=== PATIENT | male | born 1940 | race Caucasian/White ===

== ENCOUNTER 2017-04-21 15:11 | Inpatient (IN) ==
[2017-04-21] MEDS ORDERED: 0.9 % Sodium Chloride 1,000 ML IVC ONE ×2 (15:20→15:30)
[2017-04-21] MEDS ORDERED: Pantoprazole 80 MG in 0.9 % Sodium Chloride 50 ML IVPB ONE (15:20)
[2017-04-21] MEDS ORDERED: Ondansetron 4 MG/2 ML VIAL IVP ONE (15:20)
[2017-04-21 15:31] LABS: Basophils # 0.1 K/mcL (0.0-0.2); Basophils % 0.7 %; Eosinophils # 0.2 K/mcL (0.0-0.6); Eosinophils % 1.3 %; Hematocrit 35.1 % (37.5-50.1); Hemoglobin 11.5 g/dL (12.9-16.9); Immature Granulocytes % 2.5 % (0-4); Lymphocytes # 2.2 K/mcL (0.6-4.6); Lymphocytes % 19.7 %; Mean Corpuscular HGB Conc 32.8 g/dL (31.6-35.5); Mean Corpuscular Hemoglobin 28.6 pg (28.0-33.3); Mean Corpuscular Volume 87.3 fL (83.0-100.0); Mean Platelet Volume 10.3 fL (9.4-12.4); Monocytes # 1.2 K/mcL (0.0-1.3); Monocytes % 10.7 %; Neutrophils # 7.4 K/mcL (1.6-8.9); Nucleated Red Blood Cells 0.2 /100 WBC (0); Platelet Count 203 K/mcL (140-400); Red Blood Count 4.02 M/mcL (4.19-5.50); Red Cell Distribution Width 14.4 % (11.5-14.5); Segmented Neutrophils % 65.1 %
[2017-04-21 15:36] LABS: INR 1.1; Prothrombin Time 11.5 Seconds (9.4-12.1)
[2017-04-21 15:39] LABS: Activated Partial Thrombo Time 22.4 Seconds (26.0-36.0)
[2017-04-21 15:43] LABS: Calcium 9.3 mg/dL (8.6-10.8); Potassium 4.3 mEq/L (3.5-4.5)
--- NOTE | 2017-04-21 15:44 | Emergency Department Note ---
Disposition Clinical Impression: Lactic acidemia, Prerenal azotemia, Acute kidney injury GI bleed Qualifiers: GI bleed type/associated pathology: melena Qualified Code(s): K92.1 - Melena Disposition: Admitted As Inpatient Condition: Serious Time of Disposition: 19:36 GI Bleed HPI - General Chief complaint: ED GI Bleed Stated complaint: Black tar stool, weakness Time Seen by Provider: 04/21/17 15:20 Source: patient Limitations: no limitations Nursing Notes Reviewed: Yes Vital Signs Reviewed: Yes - History of Present Illness HPI Narrative: 36-year-old male presents tachycardic and his blood pressure 105/81 complains of recent GI bleed and weakness 1 day. Patient has history of hypertension diabetes. No abdominal surgeries. No cardiac issues. Patient states he went to the bathroom yesterday and found black tarry stool. Patient's symptoms of weakness and lightheadedness began yesterday evening. Patient brought in for evaluation. Patient denies tobacco use, illicit drug use, alcohol use. Patient not on any anticoagulants. - Related Data Home Medications Medication Instructions Recorded Confirmed Alendronate Sodium [Alendronate 70 mg PO QWEEK 04/21/17 04/21/17 Sodium] Glimepiride [Amaryl] 2 mg PO DAILY 04/21/17 04/21/17 Levothyroxine Sodium 50 mcg PO DAILY 04/21/17 04/21/17 [Levothyroxine Sodium] Lisinopril [Lisinopril] 2.5 mg PO DAILY 04/21/17 04/21/17 predniSONE [PredniSONE] 3 mg PO QAM 04/21/17 04/21/17 predniSONE [PredniSONE] 5 mg PO QAM 04/21/17 04/21/17 Allergies Allergy/AdvReac Type Severity Reaction Status Date / Time No Known Allergies Allergy Verified 04/21/17 15:21 All systems ED: reviewed and negative except as stated. Review of Systems: As Per HPI Constitutional: Reports: weakness. Denies: fever, chills Eyes: Denies: vision change ENT ED: Denies: congestion Cardiovascular: Denies: chest pain, palpitations Respiratory: Denies: cough, dyspnea Gastrointestinal: Denies: abdominal pain, nausea, vomiting Genitourinary: Denies: urgency, dysuria Musculoskeletal: Denies: back pain, neck pain Integumentary: Denies: rash Neurological: Reports: weakness (Generalized). Denies: headache Endocrine: Reports: fatigue Past Medical History - Past Medical History Attestation: Yes The following information was validated with the patient. Source: patient Medical history: Reports: diabetes, hypertension, thyroid disease Psychiatric history: Reports: no psych history - Social History Smoking Status: Never smoker Smokeless Tobacco Status: No Alcohol use: Reports: none Drug use: Reports: none Physical Exam - General Limitations: no limitations General appearance: alert, in no apparent distress - Head Head exam: atraumatic, normocephalic, normal inspection - Eye Eye exam: Present: normal appearance, PERRL, EOMI - ENT ENT exam: normal exam, normal oropharynx, mucous membranes moist - Neck Neck exam: Present: normal inspection, full ROM, trachea midline - Chest Chest inspection: Present: normal inspection, symmetric chest wall rise - Respiratory Respiratory exam: Present: normal lung sounds bilaterally - Cardiovascular Cardiovascular exam: Present: normal rhythm, tachycardia, normal heart sounds - Abdominal Exam Abdominal exam: Present: soft, Non-Tender. Absent: tenderness, distention, guarding, rebound, rigidity - Rectal Exam Lime Boiler present during exam: Yes Rectal exam: Present: normal inspection, normal rectal tone, black stool, prostate enlargement. Absent: hemorrhoids, tenderness - Extremities Exam Extremities exam: Present: normal inspection, full ROM. Absent: tenderness, pedal edema - Expanded Lower Extremity Exam Hip/Pelvis exam: Present: normal inspection, full ROM - Back Exam Back exam: Present: normal inspection, full ROM. Absent: tenderness, CVA tenderness (R), CVA tenderness (L) - Neurological Exam Neurological exam: Present: alert, oriented X3, CN II-XII intact - Skin Skin exam: Present: warm, dry, intact, normal color. Absent: diaphoresis, erythema, pallor, mottled Course - Consultations Consultation #1: Dr. Heaton the hospitalist accepted patient for admission at 1936 hrs. Time: 19:36 Vital Signs Temperature 98.3 F 04/21/17 15:16 Pulse Rate 105 04/21/17 15:16 Respiratory Rate 16 04/21/17 15:16 Blood Pressure 135/81 04/21/17 15:16 O2 Sat by Pulse Oximetry 97 04/21/17 15:16 Temperature 98.3 F 04/21/17 15:16 Pulse Rate 103 04/21/17 15:30 Respiratory Rate 16 04/21/17 19:35 Blood Pressure 129/67 04/21/17 19:35 O2 Sat by Pulse Oximetry 98 04/21/17 15:30 Oxygen Delivery Oxygen Delivery Room Air GI Bleed - [facility] Narrative Medical decision making narrative: Patient seen and examined. Patient's concerns of GI bleed. Rectal exam showed melanotic stool. Sent off to lab. DVT shows a white count of 11.3, anemia hemoglobin of 11.5 previous 13.4. BUN and creatinine elevated 64 and 1.59 respectively. Patient has a lactic acidemia of 2.8. IV normal saline ordered 2 L, second IV line ordered. Patient 's type and screen ordered. Patient's currently in stable condition. CT abdomen and pelvis shows: Abdomen/Pelvis CT 04/21/17 16:34 IMPRESSION: 1. No acute abnormality in the abdomen/pelvis. 2. Diverticulosis. 3. Pericardial calcification, consistent with prior pericarditis. 4. Cirrhosis. D/ / Salvador Chapman MD / Salvador Chapman MD Interpreting Provider: Salvador Chapman MD Chest X-Ray 04/21/17 17:33 IMPRESSION: Low lung volumes, unchanged. D/ / 04/21/2017 17:51:53 García Doll MD / [facility] Interpreting Provider: García Doll MD Hepatic panel ordered for cirrhosis, but no elevation of LFTs. Patient admitted for GI bleed, wholesale loan processor is consulted, Dr. Burrell accepted to see the patient. He is accepted to medicine service by - Lab Data Lab results reviewed: Yes I reviewed the patient's lab results. Lab results narrative: Short CBC 04/21/17 Range/Units 15:25 WBC 11.3 H (4.3-11.1) K/mcL Hgb 11.5 L (12.9-16.9) g/dL Hct 35.1 L (37.5-50.1) % Plt Count 203 (140-400) K/mcL Neutrophils # 7.4 (1.6-8.9) K/mcL BMP 04/21/17 Range/Units 15:25 Sodium 136 (136-145) mEq/L Potassium 4.3 (3.5-4.5) mEq/L Chloride 107 (98-109) mEq/L Carbon Dioxide 20 (19-29) mEq/L BUN 64 H (8-26) mg/dL Creatinine 1.59 H (0.72-1.25) mg/dL Glucose 384 H (70-99) mg/dL Calcium 9.3 (8.6-10.8) mg/dL Liver Function 04/21/17 Range/Units 15:25 Total Bilirubin 0.5 (0.2-1.2) mg/dL Direct Bilirubin 0.2 (0.0-0.5) mg/dL AST 21 (5-34) Units/L ALT 39 (0-55) Units/L Alkaline Phosphatase 55 (38-126) Units/L Albumin 3.2 L (3.5-5.0) g/dL Result diagrams: 04/21/17 15:25 04/21/17 15:25 Lab Results 04/21/17 04/21/17 04/21/17 Range/Units 15:25 15:25 15:25 WBC 11.3 H (4.3-11.1) K/mcL RBC 4.02 L (4.19-5.50) M/mcL Hgb 11.5 L (12.9-16.9) g/dL Hct 35.1 L (37.5-50.1) % MCV 87.3 (83.0-100.0) fL MCH 28.6 (28.0-33.3) pg MCHC 32.8 (31.6-35.5) g/dL RDW 14.4 (11.5-14.5) % Plt Count 203 (140-400) K/mcL MPV 10.3 (9.4-12.4) fL Immature Gran % 2.5 (0-4) % Seg Neutrophils % 65.1 % Lymphocytes % 19.7 % Monocytes % 10.7 % Eosinophils % 1.3 % Basophils % 0.7 % Neutrophils # 7.4 (1.6-8.9) K/mcL Lymphocytes # 2.2 (0.6-4.6) K/mcL Monocytes # 1.2 (0.0-1.3) K/mcL Eosinophils # 0.2 (0.0-0.6) K/mcL Basophils # 0.1 (0.0-0.2) K/mcL Nucleated RBCs/100 WBC 0.2 H (0) /100 WBC PT 11.5 (9.4-12.1) Seconds INR 1.1 APTT 22.4 L (26.0-36.0) Seconds Sodium 136 (136-145) mEq/L Potassium 4.3 (3.5-4.5) mEq/L Chloride 107 (98-109) mEq/L Carbon Dioxide 20 (19-29) mEq/L BUN 64 H (8-26) mg/dL Creatinine 1.59 H (0.72-1.25) mg/dL Est GFR ( Amer) 52 L (> 60) Est GFR (Non-Af Amer) 43 L (> 60) BUN/Creatinine Ratio 40 H (6-26) Glucose 384 H (70-99) mg/dL Calculated Osmolality 316 H (280-300) Lactic Acid (0.5-2.2) mmol/L Calcium 9.3 (8.6-10.8) mg/dL Total Bilirubin 0.5 (0.2-1.2) mg/dL Direct Bilirubin 0.2 (0.0-0.5) mg/dL Indirect Bilirubin 0.3 (0.0-1.2) mg/dL AST 21 (5-34) Units/L ALT 39 (0-55) Units/L Alkaline Phosphatase 55 (38-126) Units/L Serum Total Protein 6.8 (6.0-8.3) g/dL Albumin 3.2 L (3.5-5.0) g/dL Globulin 3.6 H (2.4-3.5) g/dL Albumin/Globulin Ratio 0.9 L (1.1-2.2) Blood Type Antibody Screen 04/21/17 04/21/17 Range/Units 15:25 15:44 WBC (4.3-11.1) K/mcL RBC (4.19-5.50) M/mcL Hgb (12.9-16.9) g/dL Hct (37.5-50.1) % MCV (83.0-100.0) fL MCH (28.0-33.3) pg MCHC (31.6-35.5) g/dL RDW (11.5-14.5) % Plt Count (140-400) K/mcL MPV (9.4-12.4) fL Immature Gran % (0-4) % Seg Neutrophils % % Lymphocytes % % Monocytes % % Eosinophils % % Basophils % % Neutrophils # (1.6-8.9) K/mcL Lymphocytes # (0.6-4.6) K/mcL Monocytes # (0.0-1.3) K/mcL Eosinophils # (0.0-0.6) K/mcL Basophils # (0.0-0.2) K/mcL Nucleated RBCs/100 WBC (0) /100 WBC PT (9.4-12.1) Seconds INR APTT (26.0-36.0) Seconds Sodium (136-145) mEq/L Potassium (3.5-4.5) mEq/L Chloride (98-109) mEq/L Carbon Dioxide (19-29) mEq/L BUN (8-26) mg/dL Creatinine (0.72-1.25) mg/dL Est GFR ( Amer) (> 60) Est GFR (Non-Af Amer) (> 60) BUN/Creatinine Ratio (6-26) Glucose (70-99) mg/dL Calculated Osmolality (280-300) Lactic Acid 2.8 H (0.5-2.2) mmol/L Calcium (8.6-10.8) mg/dL Total Bilirubin (0.2-1.2) mg/dL Direct Bilirubin (0.0-0.5) mg/dL Indirect Bilirubin (0.0-1.2) mg/dL AST (5-34) Units/L ALT (0-55) Units/L Alkaline Phosphatase (38-126) Units/L Serum Total Protein (6.0-8.3) g/dL Albumin (3.5-5.0) g/dL Globulin (2.4-3.5) g/dL Albumin/Globulin Ratio (1.1-2.2) Blood Type O POSITIVE Antibody Screen NEGATIVE - Radiology Data Radiology results reviewed: Yes I reviewed the patient's radiology results. Abdomen/Pelvis CT 04/21/17 16:34 IMPRESSION: 1. No acute abnormality in the abdomen/pelvis. 2. Diverticulosis. 3. Pericardial calcification, consistent with prior pericarditis. 4. Cirrhosis. D/ / Salvador Chapman MD / Salvador Chapman MD Interpreting Provider: Salvador Chapman MD Chest X-Ray 04/21/17 17:33 IMPRESSION: Low lung volumes, unchanged. D/ / 04/21/2017 17:51:53 García Doll MD / [facility] Interpreting Provider: García Doll MD - EKG Data EKG attestation: Yes I reviewed and interpreted this EKG. EKG results narrative: EKG taken 04/21/2017 at 1529 hrs. shows a sinus tachycardia at a rate of 106 beats a minute with no acute ST elevations in leads, the patient has ST depressions in leads V2 through V4 Attestation Statement - Attestation Attestation: I examined this patient and my medical decision-making was reviewed with the Resident Physician. I agree with the documented findings, disposition and treatment plan as described except to the extent set forth below. 76-year-old male with concern for gastrointestinal hemorrhage. Hemoglobin is stable. We will obtain CT scan of plan on admission for trending of H&H and GI consultation. Protonix infusion initiated.
[2017-04-21 17:48] LABS: Albumin 3.2 g/dL (3.5-5.0); Albumin/Globulin Ratio 0.9 (1.1-2.2); Bilirubin,Direct 0.2 mg/dL (0.0-0.5); Bilirubin,Indirect 0.3 mg/dL (0.0-1.2); Bilirubin,Total 0.5 mg/dL (0.2-1.2); Globulin 3.6 g/dL (2.4-3.5); Total Protein 6.8 g/dL (6.0-8.3)
[2017-04-21] MEDS: Pantoprazole 40 MG in 0.9 % Sodium Chloride Mini Bag 100 ML IVC SCH ×2 (18:14→23:44)
[2017-04-21] MEDS ORDERED: *HR* Midazolam HCl 5 MG/5 ML VIAL IVP ONE (21:01)
[2017-04-21] MEDS ORDERED: *HR* FentaNYL (PF) 100 MCG/2 ML VIAL ONE (21:03)
[2017-04-21] MEDS ORDERED: Tetracaine/Benzocaine/Butamben 200MG/SPRAY (100SPY/BOT) MM ONE (21:18)
[2017-04-21] MEDS ORDERED: Simethicone 40 MG/0.6 ML MLS IR ONE (21:18)
[2017-04-21] MEDS ORDERED: *HR* Midazolam HCl 5 MG/5 ML VIAL IVP PRN (21:18)
[2017-04-21] MEDS: *HR* FentaNYL (PF) 100 MCG/2 ML VIAL IVP PRN ×2 (21:26→21:31)
[2017-04-21] MEDS ORDERED: 0.9 % Sodium Chloride 500 ML IVC SCH (21:30)
[2017-04-21] MEDS ORDERED: SODIUM CHLORIDE/NAHCO3/KCL/PEG 4,000 ML SOLN.RECON PO ONE (21:46)
--- NOTE | 2017-04-21 21:49 | Event Note ---
Date of Encounter: 04/21/17 Time of Encounter: 10:00 Pt seen full consult to follow patient with black stool for the last 2 days does has a history of polymyalgia rheumatica and takes chronic prednisone but no other NSAIDs. Rec: EGD and if negative then will do colonoscopy in am
--- NOTE | 2017-04-21 21:50 | Internal Med History&Physical ---
<Miguel Choudhury - Last Filed: 04/21/17 23:34> Date of Encounter: 04/21/17 Time of Encounter: 20:45 Assessment and Plan (1) GI bleed Current visit: Yes Status: Acute Patient presents with descriptions of melena, Hemoccult-positive stool, and apparent symptomatic anemia. Had EGD performed the night of 04/21/17 that showed nonbleeding varices as well as nonbleeding gastric and duodenal ulcers. Plan for colonoscopy with prep per GI tomorrow We will monitor H&H Continue IV fluids Daily PPI We will transfuse the patient comes more symptomatic or hemoglobin drops below 7 Qualifiers: GI bleed type/associated pathology: melena Qualified Code(s): K92.1 - Melena (2) Anemia Current visit: Yes Status: Acute Patient hemoglobin at 11.5, down from 13.4 when last checked. Concerning is the patient's clinical signs of anemia including lightheadedness, dizziness, flushing when ambulating, the patient is stable while lying in bed. Patient has been typed and crossed Initial EGD did not identify any actively bleeding ulcers, though there appeared to be 2 small nonbleeding ulcers as well as nonbleeding varices We will transfuse the patient becomes more symptomatic We will obtain 1 AM H&H to assess for further blood loss Qualifiers: Anemia type: other cause Other causes of anemia: other cause, not classified Qualified Code(s): D64.89 - Other specified anemias (3) Liver cirrhosis Current visit: Yes Status: Acute CT examination of his abdomen appeared to demonstrate liver cirrhosis. This would be a new diagnosis for him. EGD performed the evening of 04/21/17 showed nonbleeding varices, consistent with liver cirrhosis. GI has been consulted and appreciate their assistance in evaluation of the liver cirrhosis and GI bleed Qualifiers: Hepatic cirrhosis type: unspecified hepatic cirrhosis Ascites presence: without ascites Qualified Code(s): K74.60 - Unspecified cirrhosis of liver (4) Acute kidney injury Current visit: Yes Status: Acute Ratio of BUN to creatinine suggests a prerenal cause of his current history of present illness. When looking back this past lab results in our system it was not significantly different than his creatinine now. Though is unable to assess whether this a chronic or acute condition. Elevation of his BUN will also be seen with the acute GI bleed, is difficult to ascertain whether this is a prerenal azotemia or whether a chronic kidney issue. Patient received 3 L bolus normal saline in the emergency department, will continue patient on 125 mL an hour normal saline We will continue to monitor renal function with daily chemistry Avoid potentially nephrotoxic agents (5) Polymyalgia rheumatica Current visit: Yes Status: Acute Patient has history of polymyalgia rheumatica, currently taking 8 mg prednisone daily. Reports chronic usage of steroids going back since September. Patient scheduled for colonoscopy tomorrow, will give 8 mg Solu-Cortef until patient taking by mouth. 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 We will start intermittent pneumatic compression devices Internal Medicine - H&P: HPI Chief complaint: Anemia and Black stools Admitted From: Home Plans for Post Hospital Care: Home History of present illness: Mr. Rodriguez is a 76 year old male with prior medical history of diabetes, polymyalgia rheumatica, and hypertension presents to [facility] after having 2 days of lightheadedness, flushing, and weakness when getting up and walking. For 2 days he was suffering from lightheadedness, dizziness, weakness, flushing, and diaphoresis every time he would get up and ambulate. Today he noticed to instance of black, tarry stools. At this he decided to come to the hospital. He denies having any shortness of breath, chest pain, acid reflux, indigestion, diarrhea, or constipation. He states that this has never occurred before. He states that he had been diagnosed with polymyalgia rheumatica earlier in the year has been on chronic prednisone therapy since September (currently on 8 mg a day), but denies usage of other anti-inflamatory medication. Past Med Surg Social Fam HX - Past Medical History Medical history: diabetes, hypertension, thyroid disease Psychiatric history: no psych history - Social History Smoking Status: Never smoker Smokeless Tobacco Status: No Alcohol use: none Drug use: none Internal Medicine - H&P: Meds Alendronate Sodium [Alendronate Sodium] 70 mg PO QWEEK 04/21/17 [History] Glimepiride [Amaryl] 2 mg PO DAILY 04/21/17 [History] Levothyroxine Sodium [Levothyroxine Sodium] 50 mcg PO DAILY 04/21/17 [History] Lisinopril [Lisinopril] 2.5 mg PO DAILY 04/21/17 [History] predniSONE [PredniSONE] 3 mg PO QAM 04/21/17 [History] predniSONE [PredniSONE] 5 mg PO QAM 04/21/17 [History] 3 Allergy/AdvReac Type Severity Reaction Status Date / Time No Known Allergies Allergy Verified 04/21/17 15:21 Review of systems: Gen: Denies fever, denies chills, reports weakness, diaphoresis and lightheadedness with ambulation CV: Denies chest pain, denies exertional chest pain or dyspnea, denies palpitations Resp: Denies shortness of breath, denies coughing, denies wheeze GI: Denies nausea, denies vomiting, denies indigestion, denies abdominal pain, denies constipation, denies diarrhea, denies hematochezia, reports melena, reports abdominal distention MSK: denies muscle weakness Neuro: Denies headache, denies confusion, denies focal weakness, denies numbness , denies tingling, denies vision changes Skin: Denies bruising, denies rash : Denies flank pain, denies dysuria, denies hematuria - Constitutional Vitals: Temp Pulse Resp BP Pulse Ox 92 F L 83 16 112/60 96 04/21/17 21:34 04/21/17 21:34 04/21/17 21:34 04/21/17 21:34 04/21/17 21:34 Exam: General: Cooperative, pleasant, no acute distress, alert and oriented 3, answers questions appropriately HEENT: Normocephalic, atraumatic, neck supple, trachea midline, Conjunctiva pink , sclera anicteric, oral mucosa moist, no orophargeal erythema or exudates Respiratory: No accessory muscle usage, clear to auscultation bilaterally, no wheezes/rhonchi/rales appreciated Cardiovascular: Regular rate and rhythm, S1 and S2 present, no murmurs/rubs/ gallops/clicks appreciated GI/abdominal: Protuberant abdomen, nontender, soft, normal bowel sounds, no peritoneal signs, no fluid wave Extremities: No calf tenderness, noncyanotic, no pedal edema appreciated, warm, lower extremity pulses palpable and symmetrical Neurological: Alert and oriented 3, no facial droop, no focal deficits Skin: Dry, intact, normal color Internal Med - H&P Results - Labs CBC & Chem 7: 04/21/17 15:25 04/21/17 15:25 <Karon Heaton - Last Filed: 04/22/17 01:15> Date of Encounter: 04/22/17 Internal Medicine - H&P: HPI History of present illness: Mr. Rodriguez is a 76 year old male All Systems PM: A 10-system review of systems was performed and is negative for pertinent findings except as documented above in the HPI. - Constitutional Vitals: Temp Pulse Resp BP Pulse Ox 98.0 F 80 15 110/62 90 04/21/17 22:02 04/21/17 22:02 04/21/17 22:02 04/21/17 22:02 04/21/17 22:02 Internal Med - H&P Results - Labs CBC & Chem 7: 04/22/17 00:20 04/22/17 00:20 Labs: Short CBC 04/22/17 Range/Units 00:20 WBC 13.9 H (4.3-11.1) K/mcL Hgb 10.3 L (12.9-16.9) g/dL Hct 31.2 L (37.5-50.1) % Plt Count 186 (140-400) K/mcL Neutrophils # 9.4 H (1.6-8.9) K/mcL BMP 04/22/17 00:20 Sodium 140 Potassium 4.6 H Chloride 110 H Carbon Dioxide 20 BUN 56 H Creatinine 1.42 H Glucose 171 H Calcium 8.9 Liver Function 04/22/17 Range/Units 00:20 Total Bilirubin 0.5 (0.2-1.2) mg/dL AST 18 (5-34) Units/L ALT 33 (0-55) Units/L Alkaline Phosphatase 39 (38-126) Units/L Albumin 3.2 L (3.5-5.0) g/dL - Attending Attestation I have seen and examined this patient independently. I have discussed with Resident Dr Choudhury regarding the management plan. I have reviewed and agree with the documentation. Patient has a black stool with dizziness and weakness. Guaiac positive. Consider GI bleeding. 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 Plan for colonoscopy tomorrow. We will continue IV fluid, and IV PPI. Closer monitor vitals and H&H
[2017-04-21] MEDS ORDERED: Dextrose Gel 15 GM PO PRN ×2 (21:54)
[2017-04-21] MEDS ORDERED: Ondansetron 4 MG/2 ML VIAL IVP PRN (21:54)
[2017-04-21] MEDS ORDERED: D5% in Water 1,000 ML IVC PRN (21:54)
[2017-04-21] MEDS ORDERED: *HR* Dextrose 50 % in Water (Syg) 50 ML SYRINGE IVP PRN (21:54)
[2017-04-21] MEDS ORDERED: Naloxone 0.4 MG/ML INJ IVP PRN (21:54)
[2017-04-21] MEDS: 0.9 % Sodium Chloride 1,000 ML IVC SCH (23:44)
[2017-04-22 00:46] LABS: Basophils # 0.1 K/mcL (0.0-0.2); Basophils % 0.7 %; Eosinophils # 0.2 K/mcL (0.0-0.6); Eosinophils % 1.5 %; Hematocrit 31.2 % (37.5-50.1); Hemoglobin 10.3 g/dL (12.9-16.9); Lymphocytes # 2.7 K/mcL (0.6-4.6); Lymphocytes % 19.2 %; Mean Corpuscular Hemoglobin 29.4 pg (28.0-33.3); Mean Corpuscular Volume 89.1 fL (83.0-100.0); Mean Platelet Volume 10.6 fL (9.4-12.4); Monocytes # 1.2 K/mcL (0.0-1.3); Monocytes % 8.8 %; Neutrophils # 9.4 K/mcL (1.6-8.9); Platelet Count 186 K/mcL (140-400); Red Cell Distribution Width 14.8 % (11.5-14.5); Segmented Neutrophils % 67.8 %
[2017-04-22 01:02] LABS: Albumin 3.2 g/dL (3.5-5.0); Bilirubin,Total 0.5 mg/dL (0.2-1.2); Calcium 8.9 mg/dL (8.6-10.8); Globulin 3.3 g/dL (2.4-3.5); Potassium 4.6 mEq/L (3.5-4.5); Total Protein 6.5 g/dL (6.0-8.3)
[2017-04-22] MEDS: Insulin LISPRO 300 UNITS/3 ML VIAL SQ SCH ×3 (01:34→12:32)
[2017-04-22] MEDS: Pantoprazole 40 MG in 0.9 % Sodium Chloride Mini Bag 100 ML IVC SCH ×2 (04:38→09:21)
[2017-04-22] MEDS: 0.9 % Sodium Chloride 1,000 ML IVC SCH ×2 (08:06→20:30)
[2017-04-22] MEDS: Hydrocortisone Sodium Succ 100 MG/2 ML VIAL IVP SCH (08:08)
[2017-04-22] MEDS: Pantoprazole 40 MG VIAL IVP SCH (09:05)
--- NOTE | 2017-04-22 10:54 | Internal Med Progress Note ---
Date of Encounter: 04/22/17 Time of Encounter: 10:51 - Assessment and plan (1) Acute blood loss anemia Current Visit: Yes Status: Acute Assessment and plan: Acute blood lows anemia secondary to upper GI bleed/symptomatic anemia Endoscopy showed several esophageal varices, received 6 bands, gastritis was noticed and a nonbleeding duodenal ulcer Monitor CBCs, continue Protonix IV GI to perform colonoscopy today (2) Chronic kidney disease, stage III (moderate) Current Visit: Yes Status: Acute Assessment and plan: Stable, continue IV fluids (3) GI bleed Current Visit: Yes Status: Acute Qualifiers: GI bleed type/associated pathology: melena Qualified Code(s): K92.1 - Melena (4) Lactic acidemia Current Visit: Yes Status: Acute Assessment and plan: Possibly secondary to GI bleed (5) Prerenal azotemia Current Visit: Yes Status: Acute Assessment and plan: Secondary to upper GI bleed (6) Liver cirrhosis Current Visit: Yes Status: Acute Assessment and plan: Suspected on CT scan Qualifiers: Hepatic cirrhosis type: unspecified hepatic cirrhosis Ascites presence: without ascites Qualified Code(s): K74.60 - Unspecified cirrhosis of liver (7) Polymyalgia rheumatica Current Visit: Yes Status: Acute Assessment and plan: The patient takes prednisone at home Was started on daily hydrocortisone, may switch back to prednisone - Subjective Interval history: Denies any more melena, is not dizzy anymore, denies any chest or shortness of breath, no abdominal pain, no dysuria. Slightly weak, denies nausea or vomiting - Constitutional Vitals: Temp Pulse Resp BP Pulse Ox 98.6 F 87 20 101/58 96 04/22/17 07:47 04/22/17 07:47 04/22/17 07:47 04/22/17 07:47 04/22/17 07:47 General appearance: Present: A&O X 3, obese - Head Head exam: Present: atraumatic, normocephalic - Eye Eye exam: Present: PERRL, conjuntiva pink, sclera anicteric Pupils: Present: PERRL - Neck Neck exam general surgery: Present: supple, trachea midline. Absent: lymphadenopathy - Respiratory Respiratory exam: Present: CTAB. Absent: accessory muscle use, rales, rhonchi, wheezes - Cardiovascular Cardiovascular exam: Present: RRR, +S1, +S2. Absent: diastolic murmur, gallop, rubs, systolic murmur - GI/Abdominal GI/Abdominal exam: Present: distended, normal bowel sounds, soft, no peritoneal signs. Absent: tenderness - Extremities Exam Extremities exam: Present: warm, radial pulses palpable and symmetrical. Absent : calf tenderness, cyanotic, pedal edema - Neurological Exam Neurological exam: Present: CN II-XII intact, oriented X3, no focal deficits. Absent: pronater drift, facial droop, speech deficit - Skin Skin exam: Present: dry, intact Internal Medicine: Result - Labs CBC & Chem 7: 04/22/17 00:20 04/22/17 00:20 Labs: Short CBC 04/22/17 Range/Units 00:20 WBC 13.9 H (4.3-11.1) K/mcL Hgb 10.3 L (12.9-16.9) g/dL Hct 31.2 L (37.5-50.1) % Plt Count 186 (140-400) K/mcL Neutrophils # 9.4 H (1.6-8.9) K/mcL BMP 04/22/17 00:20 Sodium 140 Potassium 4.6 H Chloride 110 H Carbon Dioxide 20 BUN 56 H Creatinine 1.42 H Glucose 171 H Calcium 8.9 Liver Function 04/22/17 Range/Units 00:20 Total Bilirubin 0.5 (0.2-1.2) mg/dL AST 18 (5-34) Units/L ALT 33 (0-55) Units/L Alkaline Phosphatase 39 (38-126) Units/L Albumin 3.2 L (3.5-5.0) g/dL - ABG Interpretation ABG results: PT/INR, D-dimer PT 11.5 Seconds (9.4-12.1) 04/21/17 15:25 Consult Discharge Plan - Plan Referrals: NONE,PCP [Primary Care Provider] -
[2017-04-22] MEDS ORDERED: *HR* FentaNYL (PF) 100 MCG/2 ML VIAL ONE (11:07)
[2017-04-22] MEDS ORDERED: *HR* Midazolam HCl 5 MG/5 ML VIAL IVP ONE (11:07)
[2017-04-22] MEDS ORDERED: *HR* FentaNYL (PF) 100 MCG/2 ML VIAL IVP PRN (11:29)
[2017-04-22] MEDS ORDERED: *HR* Midazolam HCl 5 MG/5 ML VIAL IVP PRN (11:29)
[2017-04-22] MEDS ORDERED: Simethicone 40 MG/0.6 ML MLS IR ONE (11:29)
--- NOTE | 2017-04-22 12:16 | Gastroenterology Consult Note ---
Date of Encounter: 04/21/17 Time of Encounter: 20:45 - Assessment and plan (1) Liver cirrhosis Current Visit: Yes Status: Acute Assessment and plan: Patient with newly diagnosed cirrhosis most probably due to [place] but rule out other etiology. Currently meld sodium score is 15. CAT scan with no hepatoma. We will do an EGD both for varices screening and also because the patient current problem with melena to make sure there is no esophagitis/gastric causes due to cirrhosis that are causing his melena Qualifiers: Hepatic cirrhosis type: unspecified hepatic cirrhosis Ascites presence: without ascites Qualified Code(s): K74.60 - Unspecified cirrhosis of liver (2) GI bleed Current Visit: Yes Status: Acute Assessment and plan: In This patient with the newly diagnosis cirrhosis. EGD to rule out gastric/ esophageal causes for his a melena and if EGD is negative then he will need a colonoscopy. Meanwhile follow H&H and continue PPI. Qualifiers: GI bleed type/associated pathology: melena Qualified Code(s): K92.1 - Melena - Time Spent With Patient Total time spent is greater than 50% in coordination of care (as documented) at patient's floor/unit and/or counseling patient: GI History of Present Illness - Data of Consult Consult date: 04/21/17 Requesting Physician: Joseph Bah - Consult Narrative Reason for consult: Back stool History of present illness: Mr. Rodriguez is a 76 year old male came to the ER because of having black stool for the last 2 days. No abdominal forde. per patient he does has a history of PMR and is taking prednisone for that. DEnies intake of NSAIDs. Denies alcohol use. No trouble swallowing. In the ER his hemoglobin was 11.2 and has been started on PPI infusion. Denies any vomiting of blood. Had a CT scan done and that is showing cirrhosis which is a new diagnosis Past Med Surg Social Fam HX - Past Medical History Medical history: diabetes, hypertension, thyroid disease Psychiatric history: no psych history - Past Surgical History Surgical History: cholecystectomy - Social History Smoking Status: Never smoker Smokeless Tobacco Status: No Alcohol use: none Drug use: none Review of Systems: GI: as per NINILCHIK. Denies vomiting any blood GENERAL: denies fever, has some chills EYES: denies yellow discoloration ENT: denies pain with swallowing or difficulty swallowing CARDIO: denies chest pain, palpitations RESP: Complaint of some shortness of breath : denies change in color of urine. Has a history of recurrent epididymitis and has been seen by a urologist and [place] in the past NEURO: denies any weakness HEME: Denies any bruising MS: HAs polymyalgia rheumatica and takes prednisone DERM: denies rash or itching PSYCH: No complaing of felling depress - Constitutional Vitals: Temp Pulse Resp BP Pulse Ox 98.4 F 80 14 120/57 98 04/22/17 11:50 04/22/17 11:50 04/22/17 11:50 04/22/17 11:50 04/22/17 11:50 - Head Head exam: Present: atraumatic, normocephalic - Eye Eye exam: Present: sclera anicteric - Neck Neck exam general surgery: Present: supple - Respiratory Additional comments: Bilaterally good air entry , no wheezing - Cardiovascular Cardiovascular exam: Present: +S1, +S2 Additional comments: Rhythm is regular - GI/Abdominal GI/Abdominal exam: Present: soft Additional comments: No guarding or rigidity no organomegaly - Rectal Rectal exam: Present: deferred - Extremities Exam Extremities exam: Present: warm Additional comments: No clubbing cyanosis or edema - Neurological Exam Neurological exam: Present: oriented X3 - Skin Skin exam: Present: dry, warm Results - Labs CBC & Chem 7: 04/22/17 00:20 04/22/17 00:20 Labs: Last Result Calcium 8.9 mg/dL (8.6-10.8) 04/22/17 00:20 Entire Visit Hgb 10.3 g/dL (12.9-16.9) L 04/22/17 00:20 Hct 31.2 % (37.5-50.1) L 04/22/17 00:20 PT 11.5 Seconds (9.4-12.1) 04/21/17 15:25 Total Bilirubin 0.5 mg/dL (0.2-1.2) 04/22/17 00:20 AST 18 Units/L (5-34) 04/22/17 00:20 ALT 33 Units/L (0-55) 04/22/17 00:20 - ABG ABG results: PT/INR, D-dimer PT 11.5 Seconds (9.4-12.1) 04/21/17 15:25 Consult Discharge Plan - Plan Referrals: NONE,PCP [Primary Care Provider] -
[2017-04-23] MEDS: Insulin LISPRO 300 UNITS/3 ML VIAL SQ SCH ×6 (00:50→20:30)
[2017-04-23] MEDS: 0.9 % Sodium Chloride 1,000 ML IVC SCH ×3 (04:34→16:19)
[2017-04-23] MEDS: Hydrocortisone Sodium Succ 100 MG/2 ML VIAL IVP SCH (08:10)
[2017-04-23] MEDS: Pantoprazole 40 MG VIAL IVP SCH (08:10)
[2017-04-23 09:39] LABS: Basophils % 0.6 %; Eosinophils # 0.1 K/mcL (0.0-0.6); Eosinophils % 1.5 %; Hematocrit 22.6 % (37.5-50.1); Immature Granulocytes % 0.6 % (0-4); Immature Platelets 2.8 % (1.1-6.1); Lymphocytes # 0.7 K/mcL (0.6-4.6); Mean Corpuscular HGB Conc 33.2 g/dL (31.6-35.5); Mean Corpuscular Hemoglobin 29.3 pg (28.0-33.3); Mean Corpuscular Volume 88.3 fL (83.0-100.0); Mean Platelet Volume 10.2 fL (9.4-12.4); Monocytes # 0.4 K/mcL (0.0-1.3); Monocytes % 7.6 %; Neutrophils # 4.1 K/mcL (1.6-8.9); Nucleated Red Blood Cells 0.4 /100 WBC (0); Platelet Count 108 K/mcL (140-400); Red Blood Count 2.56 M/mcL (4.19-5.50); Red Cell Distribution Width 14.6 % (11.5-14.5); Segmented Neutrophils % 76.7 %
[2017-04-23 09:50] LABS: Calcium 7.9 mg/dL (8.6-10.8); Hemoglobin 7.5 g/dL (12.9-16.9); Potassium 4.1 mEq/L (3.5-4.5)
[2017-04-23] MEDS ORDERED: 0.9 % Sodium Chloride 250 ML IVC SCH (10:15)
[2017-04-23 16:29] LABS: Hematocrit 27.2 % (37.5-50.1); Hemoglobin 8.9 g/dL (12.9-16.9)
--- NOTE | 2017-04-23 17:19 | Internal Med Progress Note ---
Date of Encounter: 04/23/17 Time of Encounter: 17:17 - Assessment and plan (1) Acute blood loss anemia Current Visit: Yes Status: Acute Assessment and plan: Acute blood lows anemia secondary to upper GI bleed/symptomatic anemia Endoscopy showed several esophageal varices, received 6 bands, gastritis was noticed and a nonbleeding duodenal ulcer Monitor CBCs, continue Protonix IV GI to perform colonoscopy today received 1 unit of RBCs, was hypotensive may discharge home if stable in the morning continue IVF (2) Chronic kidney disease, stage III (moderate) Current Visit: Yes Status: Acute Assessment and plan: Stable, continue IV fluids (3) GI bleed Current Visit: Yes Status: Acute Qualifiers: GI bleed type/associated pathology: melena Qualified Code(s): K92.1 - Melena (4) Lactic acidemia Current Visit: Yes Status: Acute Assessment and plan: Possibly secondary to GI bleed (5) Prerenal azotemia Current Visit: Yes Status: Acute Assessment and plan: Secondary to upper GI bleed (6) Liver cirrhosis Current Visit: Yes Status: Acute Assessment and plan: Suspected on CT scan Qualifiers: Hepatic cirrhosis type: unspecified hepatic cirrhosis Ascites presence: without ascites Qualified Code(s): K74.60 - Unspecified cirrhosis of liver (7) Polymyalgia rheumatica Current Visit: Yes Status: Acute Assessment and plan: The patient takes prednisone at home Was started on daily hydrocortisone, may switch back to prednisone - Subjective Interval history: Had a BM earlier, his BP has been between high 90s and low 100s. Received 1 unit of RBCs. Denies any more melena, is not dizzy anymore, denies any chest or shortness of breath, no abdominal pain, no dysuria. Slightly weak, denies nausea or vomiting - Constitutional Vitals: Temp Pulse Resp BP Pulse Ox 98 F 72 16 108/63 99 04/23/17 14:19 04/23/17 14:19 04/23/17 14:19 04/23/17 14:19 04/23/17 14:19 General appearance: Present: A&O X 3, obese - Head Head exam: Present: atraumatic, normocephalic - Eye Eye exam: Present: PERRL, conjuntiva pink, sclera anicteric Pupils: Present: PERRL - Neck Neck exam general surgery: Present: supple, trachea midline. Absent: lymphadenopathy - Respiratory Respiratory exam: Present: CTAB. Absent: accessory muscle use, rales, rhonchi, wheezes - Cardiovascular Cardiovascular exam: Present: RRR, +S1, +S2. Absent: diastolic murmur, gallop, rubs, systolic murmur - GI/Abdominal GI/Abdominal exam: Present: distended, normal bowel sounds, soft, no peritoneal signs. Absent: tenderness - Extremities Exam Extremities exam: Present: warm, radial pulses palpable and symmetrical. Absent : calf tenderness, cyanotic, pedal edema - Neurological Exam Neurological exam: Present: CN II-XII intact, oriented X3, no focal deficits. Absent: pronater drift, facial droop, speech deficit - Skin Skin exam: Present: dry, intact Internal Medicine: Result - Labs CBC & Chem 7: 04/23/17 16:03 04/23/17 09:30 Labs: Short CBC 04/23/17 04/23/17 Range/Units 09:30 16:03 WBC 5.4 D (4.3-11.1) K/mcL Hgb 7.5 L D 8.9 L (12.9-16.9) g/dL Hct 22.6 L 27.2 L (37.5-50.1) % Plt Count 108 L (140-400) K/mcL Neutrophils # 4.1 (1.6-8.9) K/mcL BMP 04/23/17 09:30 Sodium 137 Potassium 4.1 Chloride 110 H Carbon Dioxide 19 BUN 27 H D Creatinine 1.47 H Glucose 177 H Calcium 7.9 L - ABG Interpretation ABG results: PT/INR, D-dimer PT 11.5 Seconds (9.4-12.1) 04/21/17 15:25 - VTE Documentation of Mechanical Device: Intermittent pneumatic compression device Consult Discharge Plan - Plan Referrals: NONE,PCP [Primary Care Provider] -
[2017-04-24] MEDS: 0.9 % Sodium Chloride 1,000 ML IVC SCH ×3 (03:48→23:15)
[2017-04-24 06:34] LABS: Hemoglobin 7.6 g/dL (12.9-16.9); Red Cell Distribution Width 14.7 % (11.5-14.5)
[2017-04-24 06:36] LABS: Hematocrit 23.3 % (37.5-50.1); Immature Platelets 3.4 % (1.1-6.1); Mean Corpuscular HGB Conc 32.6 g/dL (31.6-35.5); Mean Corpuscular Hemoglobin 29.1 pg (28.0-33.3); Mean Corpuscular Volume 89.3 fL (83.0-100.0); Mean Platelet Volume 10.8 fL (9.4-12.4); Red Blood Count 2.61 M/mcL (4.19-5.50)
[2017-04-24 06:42] LABS: Calcium 7.7 mg/dL (8.6-10.8); Potassium 3.8 mEq/L (3.5-4.5)
[2017-04-24] MEDS: Hydrocortisone Sodium Succ 100 MG/2 ML VIAL IVP SCH (08:40)
[2017-04-24] MEDS: Pantoprazole 40 MG VIAL IVP SCH ×2 (08:40→21:11)
[2017-04-24] MEDS: Insulin LISPRO 300 UNITS/3 ML VIAL SQ SCH ×4 (08:40→21:11)
--- NOTE | 2017-04-24 08:40 | Internal Med Progress Note ---
Date of Encounter: 04/24/17 Time of Encounter: 08:37 - Assessment and plan (1) Acute blood loss anemia Current Visit: Yes Status: Acute Assessment and plan: Acute blood lows anemia secondary to upper GI bleed/symptomatic anemia Endoscopy showed several esophageal varices, received 6 bands, gastritis was noticed and a nonbleeding duodenal ulcer Monitor CBCs, continue Protonix IV GI performed also a colonoscopy which showed polyps that were removed and diverticulosis in the sigmoid colon received 1 unit of RBCs, was hypotensive Hb dropped again today from 8.9 down to 7.6, consider transfusion consider octreotide if active bleeding is suspected Gi recommendations appreciated continue IVF (2) Chronic kidney disease, stage III (moderate) Current Visit: Yes Status: Acute Assessment and plan: Stable, continue IV fluids (3) GI bleed Current Visit: Yes Status: Acute Qualifiers: GI bleed type/associated pathology: melena Qualified Code(s): K92.1 - Melena (4) Lactic acidemia Current Visit: Yes Status: Acute Assessment and plan: Possibly secondary to GI bleed (5) Prerenal azotemia Current Visit: Yes Status: Acute Assessment and plan: Secondary to upper GI bleed (6) Liver cirrhosis Current Visit: Yes Status: Acute Assessment and plan: Suspected on CT scan Qualifiers: Hepatic cirrhosis type: unspecified hepatic cirrhosis Ascites presence: without ascites Qualified Code(s): K74.60 - Unspecified cirrhosis of liver (7) Polymyalgia rheumatica Current Visit: Yes Status: Acute Assessment and plan: The patient takes prednisone at home Was started on daily hydrocortisone, may switch back to prednisone - Subjective Interval history: Had a BM again today, hemoccult was positive yesterday, his BP has been between high 90s and low 100s. Received 1 unit of RBCs. Denies any melena, is not dizzy at the moment, denies any chest or shortness of breath, no abdominal pain, no dysuria. Slightly weak, denies nausea or vomiting - Constitutional Vitals: Temp Pulse Resp BP Pulse Ox 97.6 F 79 17 124/67 97 04/24/17 07:04 04/24/17 07:04 04/24/17 07:04 04/24/17 07:04 04/24/17 07:04 General appearance: Present: A&O X 3, obese - Head Head exam: Present: atraumatic, normocephalic - Eye Eye exam: Present: PERRL, conjuntiva pink, sclera anicteric Pupils: Present: PERRL - Neck Neck exam general surgery: Present: supple, trachea midline. Absent: lymphadenopathy - Respiratory Respiratory exam: Present: CTAB. Absent: accessory muscle use, rales, rhonchi, wheezes - Cardiovascular Cardiovascular exam: Present: RRR, +S1, +S2. Absent: diastolic murmur, gallop, rubs, systolic murmur - GI/Abdominal GI/Abdominal exam: Present: distended, normal bowel sounds, soft, no peritoneal signs. Absent: tenderness - Extremities Exam Extremities exam: Present: warm, radial pulses palpable and symmetrical. Absent : calf tenderness, cyanotic, pedal edema - Neurological Exam Neurological exam: Present: CN II-XII intact, oriented X3, no focal deficits. Absent: pronater drift, facial droop, speech deficit - Skin Skin exam: Present: dry, intact Internal Medicine: Result - Labs CBC & Chem 7: 04/24/17 05:31 04/24/17 05:31 Labs: Short CBC 04/23/17 04/23/17 04/24/17 Range/Units 09:30 16:03 05:31 WBC 5.4 D 4.6 (4.3-11.1) K/mcL Hgb 7.5 L D 8.9 L 7.6 L (12.9-16.9) g/dL Hct 22.6 L 27.2 L 23.3 L (37.5-50.1) % Plt Count 108 L 99 L (140-400) K/mcL Neutrophils # 4.1 (1.6-8.9) K/mcL BMP 04/23/17 04/24/17 09:30 05:31 Sodium 137 138 Potassium 4.1 3.8 Chloride 110 H 113 H Carbon Dioxide 19 19 BUN 27 H D 22 Creatinine 1.47 H 1.50 H Glucose 177 H 140 H Calcium 7.9 L 7.7 L - ABG Interpretation ABG results: PT/INR, D-dimer PT 11.5 Seconds (9.4-12.1) 04/21/17 15:25 - VTE Documentation of Mechanical Device: Intermittent pneumatic compression device Consult Discharge Plan - Plan Referrals: NONE,PCP [Primary Care Provider] -
[2017-04-24] MEDS ORDERED: 0.9 % Sodium Chloride 500 ML ONE (11:54)
[2017-04-24 16:32] LABS: Hematocrit 27.8 % (37.5-50.1); Hemoglobin 9.1 g/dL (12.9-16.9)
[2017-04-25 05:33] LABS: Hematocrit 26.7 % (37.5-50.1); Hemoglobin 8.9 g/dL (12.9-16.9); Mean Corpuscular HGB Conc 33.3 g/dL (31.6-35.5); Mean Corpuscular Hemoglobin 29.4 pg (28.0-33.3); Mean Corpuscular Volume 88.1 fL (83.0-100.0); Mean Platelet Volume 10.5 fL (9.4-12.4); Platelet Count 100 K/mcL (140-400); Red Blood Count 3.03 M/mcL (4.19-5.50)
[2017-04-25 05:53] LABS: BUN/Creatinine Ratio 15 (6-26); Blood Urea Nitrogen 20 mg/dL (8-26); Calcium 7.7 mg/dL (8.6-10.8); Carbon Dioxide 19 mEq/L (19-29); Chloride 115 mEq/L (98-109); Glucose 133 mg/dL (70-99); Osmolality,Calculated 293 (280-300); Potassium 3.5 mEq/L (3.5-4.5); Sodium 139 mEq/L (136-145); eGFR For African Americans > 60 (> 60); eGFR For Non-African Americans 53 (> 60)
[2017-04-25] MEDS: 0.9 % Sodium Chloride 1,000 ML IVC SCH (06:38)
--- NOTE | 2017-04-25 08:15 | Electrocardiograph Report ---
[place] [id number] Test Date: 2017-04-21 Pat Name: Lex Rodriguez Department: 102 Room: [facility] Gender: M Cell Tester: [facility] : 1940 Requested By: Dante Gunter Order Number: [id number] Reading MD: Liset Hardin Measurements Intervals [place] Rate: 106 P: 32 NM: 159 QRS: 25 QRSD: 86 T: 34 QT: 321 QTc: 383 Interpretive Statements SINUS TACHYCARDIA MINIMAL ST DEPRESSION [0.025+ mV ST DEPRESSION] ABNORMAL RHYTHM ECG Electronically Signed On 04-24-2017 11:04:53 EDT by Liset Hardin
[2017-04-25] MEDS: Pantoprazole 40 MG VIAL IVP SCH ×2 (08:55→22:18)
[2017-04-25] MEDS: Hydrocortisone Sodium Succ 100 MG/2 ML VIAL IVP SCH (08:56)
[2017-04-25] MEDS: Insulin LISPRO 300 UNITS/3 ML VIAL SQ SCH ×4 (08:56→22:13)
[2017-04-25 11:35] LABS: Hematocrit 28.3 % (37.5-50.1); Hemoglobin 9.4 g/dL (12.9-16.9)
--- NOTE | 2017-04-25 17:27 | Internal Med Progress Note ---
Date of Encounter: 04/25/17 Time of Encounter: 10:25 - Assessment and plan (1) Acute blood loss anemia Status: Acute Assessment and plan: Hemoglobin levels appear to be stabilizing. 8.9 this morning. We will continue to monitor. Start clear liquid diet and advance as tolerated. If blood counts remained stable, to go home tomorrow. (2) Chronic kidney disease, stage III (moderate) Status: Acute Assessment and plan: Renal functions remained stable. (3) GI bleed Status: Acute Assessment and plan: With esophageal varices. Treated with banding. Recommend outpatient follow-up with GI for repeat EGD. Continue to monitor blood counts. Continue PPI Qualifiers: GI bleed type/associated pathology: melena Qualified Code(s): K92.1 - Melena (4) Lactic acidemia Status: Resolved (5) Liver cirrhosis Status: Chronic Assessment and plan: continue supportive care. Follow up with gastroenterology Qualifiers: Hepatic cirrhosis type: unspecified hepatic cirrhosis Ascites presence: without ascites Qualified Code(s): K74.60 - Unspecified cirrhosis of liver (6) Polymyalgia rheumatica Status: Acute Assessment and plan: On steroids. Resume oral steroids when patient is able to tolerate oral diet (7) Prerenal azotemia Status: Resolved - Subjective Interval history: Patient feeling good this morning. Has been nothing by mouth because of continued suspected GI bleed yesterday with a drop in his hemoglobin level requiring blood transfusion. However since last night his blood counts have been stable. He has not had any bowel movement yet this morning. No hematemesis or nausea. - Constitutional Vitals: Temp Pulse Resp BP Pulse Ox 98.8 F 79 16 128/72 96 04/25/17 16:03 04/25/17 16:03 04/25/17 16:03 04/25/17 16:03 04/25/17 16:03 General appearance: Present: A&O X 3, obese, answers questions appropriately - Respiratory Respiratory exam: Present: CTAB. Absent: accessory muscle use, rales, rhonchi, wheezes - Cardiovascular Cardiovascular exam: Present: RRR, +S1, +S2. Absent: diastolic murmur, gallop, rubs, systolic murmur - GI/Abdominal GI/Abdominal exam: Present: normal bowel sounds, soft, no peritoneal signs. Absent: distended, tenderness - Extremities Exam Extremities exam: Present: warm, radial pulses palpable and symmetrical. Absent : calf tenderness, cyanotic, pedal edema - Neurological Exam Neurological exam: Present: alert, oriented X3, no focal deficits. Absent: facial droop, speech deficit - Skin Skin exam: Present: dry, intact Internal Medicine: Result - Labs CBC & Chem 7: 04/26/17 06:07 04/25/17 05:03 Labs: Short CBC 04/25/17 04/25/17 Range/Units 05:03 11:21 WBC 4.3 (4.3-11.1) K/mcL Hgb 8.9 L 9.4 L (12.9-16.9) g/dL Hct 26.7 L 28.3 L (37.5-50.1) % Plt Count 100 L (140-400) K/mcL BMP 04/25/17 05:03 Sodium 139 Potassium 3.5 Chloride 115 H Carbon Dioxide 19 BUN 20 Creatinine 1.31 H Glucose 133 H Calcium 7.7 L - ABG Interpretation ABG results: PT/INR, D-dimer PT 11.5 Seconds (9.4-12.1) 04/21/17 15:25 - VTE Documentation of Mechanical Device: Intermittent pneumatic compression device Consult Discharge Plan - Plan Instructions: Diabetes Mellitus Type 2 in Adults (DC), Esophageal Varices (DC) , Anemia (GEN) Referrals: Luis Schmitt MD [Non-Partnered Physician] - 05/22/17 8:30 am Will Burrell MD [Partnered Physician] - 05/23/17 1:40 pm (in 3-4 weeks) Prescriptions: Omeprazole [PriLOSEC] 40 mg PO DAILY #30 cap
[2017-04-25 17:51] LABS: Hematocrit 28.3 % (37.5-50.1); Hemoglobin 9.4 g/dL (12.9-16.9)
[2017-04-26 01:15] LABS: Hematocrit 27.3 % (37.5-50.1); Hemoglobin 9.1 g/dL (12.9-16.9)
[2017-04-26 06:15] LABS: Hematocrit 27.1 % (37.5-50.1); Hemoglobin 9.2 g/dL (12.9-16.9)
[2017-04-26 07:47] VITALS: BP 134/72
--- NOTE | 2017-04-26 08:18 | Discharge Summary ---
Date of Encounter: 04/26/17 Time of Encounter: 08:16 - Discharge Diagnosis (1) Acute blood loss anemia Priority: Primary Status: Acute (2) Chronic kidney disease, stage III (moderate) Priority: Secondary Status: Acute (3) GI bleed Priority: Secondary Status: Acute Qualifiers: GI bleed type/associated pathology: melena Qualified Code(s): K92.1 - Melena (4) Lactic acidemia Priority: Secondary Status: Resolved (5) Liver cirrhosis Priority: Secondary Status: Chronic Qualifiers: Hepatic cirrhosis type: unspecified hepatic cirrhosis Ascites presence: without ascites Qualified Code(s): K74.60 - Unspecified cirrhosis of liver (6) Polymyalgia rheumatica Priority: Secondary Status: Acute (7) Prerenal azotemia Priority: Secondary Status: Resolved (8) Duodenal ulcer Priority: Secondary Status: Acute (9) Esophageal varices Priority: Secondary Status: Chronic Qualifiers: Esophageal varices type: secondary Esophageal varices bleeding: without bleeding Qualified Code(s): I85.10 - Secondary esophageal 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 - Discharge Medications Prescriptions: Omeprazole [PriLOSEC] 40 mg PO DAILY #30 cap Home Medications: Alendronate Sodium 70 mg PO QWEEK 04/21/17 [History] Glimepiride [Amaryl] 2 mg PO DAILY 04/21/17 [History] Levothyroxine Sodium 50 mcg PO DAILY 04/21/17 [History] Lisinopril 2.5 mg PO DAILY 04/21/17 [History] predniSONE [PredniSONE] 3 mg PO QAM 04/21/17 [History] predniSONE [PredniSONE] 5 mg PO QAM 04/21/17 [History] Omeprazole [PriLOSEC] 40 mg PO DAILY #30 cap 04/26/17 [Rx] Allergies/Adverse Reactions: 3 Allergy/AdvReac Type Severity Reaction Status Date / Time No Known Allergies Allergy Verified 04/21/17 15:21 Procedures/tests Complete & Pending: Procedures Performed prior 72 hours Category Date Time Status ECG 12 lead ECG [ECG] Routine Y 04/23/17 16:17 Completed Date of admission: 04/21/17 21:54 Primary care physician: PCP NONE Consults: 04/21/17 17:58 Consult to Gastroenterology [CONS] Stat Consulting Provider: Gastroenterology Mariama Reason for Consult: GI bleed Time Notified: 17:59 Call Completed: Yes Discharging clinician: Darwin Edward Anticipated date of discharge: 04/26/17 - Patient Status Disposition: Home, Self-Care Condition: Good Functional capacity at discharge: independent ambulation Overall status at discharge: patient is progressing back to baseline - Discharge Instructions Instructions: Diabetes Mellitus Type 2 in Adults (DC), Esophageal Varices (DC) , Anemia (GEN) Follow Up With: Luis Schmitt MD [Non-Partnered Physician] - 05/22/17 8:30 am Will Burrell MD [Partnered Physician] - 05/23/17 1:40 pm (in 3-4 weeks) - Diet and Activity Activity: increase activity as tolerated Diet: low fat, low cholesterol, low salt diet Hospital course: Mr. Rodriguez is a 76 year old male patient with history of and polymyalgia, along with chronic kidney disease was admitted here with severe anemia from acute blood loss through GI bleed. He was having episodes of melena. He presented with a hemoglobin of 11.5 which then decreased to 7.5. Gastroenterology was consulted and patient underwent upper GI endoscopy which showed multiple esophageal varices. No active bleeding was identified. These were banded and eradicated. Patient also underwent colonoscopy which did not show any active bleeding but patient had polyps. His blood counts have been monitored closely and he received 2 units of packed red blood cells. He is now doing much better and his hemoglobin levels have been stable over the past 24 hours. He had a bowel movement this morning which did not appear to be melanotic. He is clinically stable for discharge home. He can follow up with gastroenterology as outpatient for repeat EGD per their recommendations. - Time Spent with Patient Total time spent providing and/or coordinating discharge services: Greater than 30 minutes (35 min) - Constitutional Vitals: Temp Pulse Resp BP Pulse Ox 98 F 66 16 134/72 99 04/26/17 07:36 04/26/17 07:36 04/26/17 07:36 04/26/17 07:36 04/26/17 07:36 General appearance: Present: A&O X 3, obese, answers questions appropriately - Neck Neck exam general surgery: Present: supple, trachea midline. Absent: lymphadenopathy - Respiratory Respiratory exam: Present: CTAB. Absent: accessory muscle use, rales, rhonchi, wheezes - Cardiovascular Cardiovascular exam: Present: RRR, +S1, +S2. Absent: diastolic murmur, gallop, rubs, systolic murmur - Extremities Exam Extremities exam: Present: warm, radial pulses palpable and symmetrical. Absent : calf tenderness, cyanotic, pedal edema - Neurological Exam Neurological exam: Present: alert, CN II-XII intact, oriented X3, no focal deficits. Absent: facial droop, speech deficit - Skin Skin exam: Present: dry, intact - VTE Documentation of Mechanical Device: Intermittent pneumatic compression device
[2017-04-26] MEDS: Hydrocortisone Sodium Succ 100 MG/2 ML VIAL IVP SCH (08:56)
[2017-04-26] MEDS: Insulin LISPRO 300 UNITS/3 ML VIAL SQ SCH (08:56)
[2017-04-26] MEDS: Pantoprazole 40 MG VIAL IVP SCH (08:58)
--- NOTE | 2017-04-26 11:25 | Electrocardiograph Report ---
[place] [id number] Test Date: 2017-04-23 Pat Name: Lex Rodriguez Department: 114 Room: [facility] Gender: M [employer]ter: : 1940 Requested By: Darwin Edward Order Number: [id number] Reading MD: Liset Hardin Measurements Intervals [place] Rate: 68 P: -15 ME: 169 QRS: -6 QRSD: 85 T: 18 QT: 390 QTc: 408 Interpretive Statements SINUS RHYTHM NONSPECIFIC T-WAVE ABNORMALITY Electronically Signed On 04-26-2017 11:23:50 EDT by Liset Hardin
== END 2017-04-26 10:03 | disposition home or self-care (01) | DRG 378 ==
LOC: 3ANU 15:11 → EMEROO 15:11 → 3ANU 19:53 → 3NENU 21:27 → SUATTDRO 21:54
PROVIDERS: ADMIT Internal Medicine; ATTEND Internal Medicine

== ENCOUNTER 2022-01-10 06:48 | Observation (INO) ==
[2022-01-10] MEDS ORDERED: 0.9 % Sodium Chloride 500 ML ONE (07:12)
[2022-01-10] MEDS ORDERED: Heparin 1,000 UNITS/500 mL 500 ML ONE ×2 (07:12→07:57)
[2022-01-10] MEDS ORDERED: Lidocaine/EPI 1:100k 1% 50 ML VIAL ONE (07:13)
[2022-01-10 07:14] LABS: Basophils % 0.7 %; Eosinophils # 0.4 K/mcL (0.0-0.6); Eosinophils % 6.3 %; Hematocrit 32.2 % (37.5-50.1); Hemoglobin 10.7 g/dL (12.9-16.9); Immature Granulocytes % 0.4 % (0-4); Lymphocytes # 0.9 K/mcL (0.6-4.6); Lymphocytes % 16.8 %; Mean Corpuscular HGB Conc 33.2 g/dL (31.6-35.5); Mean Corpuscular Volume 87.3 fL (83.0-100.0); Mean Platelet Volume 9.5 fL (9.4-12.4); Monocytes # 0.6 K/mcL (0.0-1.3); Neutrophils # 3.6 K/mcL (1.6-8.9); Platelet Count 210 K/mcL (140-400); Red Blood Count 3.69 M/mcL (4.19-5.50); Red Cell Distribution Width 14.9 % (11.5-14.5); Segmented Neutrophils % 64.8 %; White Blood Count 5.6 K/mcL (4.3-11.1)
[2022-01-10 07:20] LABS: INR 1.3; Prothrombin Time 14.1 Seconds (9.4-12.1)
[2022-01-10] MEDS ORDERED: *HR* Rocuronium Bromide 50 MG/5 ML VIAL ONE (07:33)
[2022-01-10] MEDS ORDERED: *HR* FentaNYL (PF) 250 MCG/5 ML VIAL ONE (07:33)
[2022-01-10] MEDS ORDERED: *HR* Succinylcholine 200 MG/10 ML VIAL IVP ONE (07:33)
[2022-01-10] MEDS ORDERED: *HR* FentaNYL (PF) 100 MCG/2 ML VIAL IVP PRN (08:00)
[2022-01-10] MEDS ORDERED: Ondansetron 4 MG/2 ML VIAL IVP PRN (08:00)
[2022-01-10] MEDS ORDERED: Isovue-300 50ML VIAL IVP ONE (09:15)
[2022-01-10] MEDS ORDERED: Naloxone 0.4 MG/ML INJ IVP PRN (09:16)
[2022-01-10] MEDS ORDERED: D5% in Water 1,000 ML IVC PRN (09:19)
[2022-01-10] MEDS ORDERED: Dextrose 4 GM Chewable Tablets PO PRN ×2 (09:19)
[2022-01-10] MEDS ORDERED: *HR* Dextrose 50 % in Water (Syg) 50 ML SYRINGE IVP PRN (09:19)
[2022-01-10] MEDS: Insulin LISPRO 300 UNITS/3 ML VIAL SUBQ SCH ×2 (12:40→17:24)
[2022-01-10] MEDS ORDERED: Insulin LISPRO 300 UNITS/3 ML VIAL SUBQ SCH (21:00)
[2022-01-11 06:54] LABS: Basophils % 0.3 %; Hematocrit 29.1 % (37.5-50.1); Hemoglobin 9.9 g/dL (12.9-16.9); Immature Granulocytes % 0.7 % (0-4); Lymphocytes # 0.6 K/mcL (0.6-4.6); Lymphocytes % 7.6 %; Mean Corpuscular Hemoglobin 29.1 pg (28.0-33.3); Mean Corpuscular Volume 85.6 fL (83.0-100.0); Mean Platelet Volume 9.9 fL (9.4-12.4); Monocytes # 0.5 K/mcL (0.0-1.3); Monocytes % 7.3 %; Neutrophils # 6.1 K/mcL (1.6-8.9); Platelet Count 180 K/mcL (140-400); Red Cell Distribution Width 14.8 % (11.5-14.5); Segmented Neutrophils % 84.1 %; White Blood Count 7.2 K/mcL (4.3-11.1)
[2022-01-11 07:03] LABS: INR 1.2; Prothrombin Time 13.9 Seconds (9.4-12.1)
[2022-01-11 07:46] LABS: Albumin 2.9 g/dL (3.5-5.7); Albumin/Globulin Ratio 1.1 (1.1-2.2); Bilirubin,Direct 0.2 mg/dL (0.0-0.2); Bilirubin,Indirect 0.3 mg/dL (0.0-1.0); Bilirubin,Total 0.5 mg/dL (0.3-1.0); Calcium 8.8 mg/dL (8.6-10.3); Globulin 2.7 g/dL (2.4-3.5); Magnesium 1.4 mg/dL (1.6-2.6); Total Protein 5.6 g/dL (6.4-8.9)
[2022-01-11] MEDS: Insulin LISPRO 300 UNITS/3 ML VIAL SUBQ SCH (09:54)
[2022-01-11 11:02] VITALS: BP 103/51; PULSE 77; TEMP 98.2; O2SAT 97
== END 2022-01-11 11:36 | disposition home or self-care (01) ==
LOC: SUATTDRO → INTRAD 06:48 → 2NENU 06:48 → SUATTDRO 10:50
PROVIDERS: ADMIT Pharmacist; ATTEND Internal Medicine

== ENCOUNTER 2022-01-26 17:37 | Inpatient (IN) ==
[2022-01-26 23:07] LABS: Basophils # 0.1 K/mcL (0.0-0.2); Basophils % 0.9 %; Eosinophils # 0.4 K/mcL (0.0-0.6); Hematocrit 32.9 % (37.5-50.1); Hemoglobin 11.2 g/dL (12.9-16.9); Immature Granulocytes % 0.4 % (0-4); Lymphocytes # 0.9 K/mcL (0.6-4.6); Lymphocytes % 12.9 %; Mean Corpuscular Hemoglobin 28.7 pg (28.0-33.3); Mean Corpuscular Volume 84.4 fL (83.0-100.0); Mean Platelet Volume 9.1 fL (9.4-12.4); Monocytes # 0.8 K/mcL (0.0-1.3); Monocytes % 11.4 %; Neutrophils # 4.7 K/mcL (1.6-8.9); Platelet Count 154 K/mcL (140-400); Red Cell Distribution Width 16.8 % (11.5-14.5); Segmented Neutrophils % 68.4 %; White Blood Count 6.8 K/mcL (4.3-11.1)
[2022-01-26] MEDS ORDERED: Ondansetron 4 MG/2 ML VIAL IVP PRN (23:07)
[2022-01-26] MEDS ORDERED: Naloxone 0.4 MG/ML INJ IVP PRN (23:07)
[2022-01-26] MEDS ORDERED: Lactulose 200 GM, Sodium Chloride IRRigation 700 ML RC ONE (23:09)
[2022-01-26] MEDS ORDERED: Furosemide 20 MG/2 ML VIAL IVP ONE (23:10)
[2022-01-26] MEDS ORDERED: cefTRIAXone 1,000 MG in 0.9 % Sodium Chloride 10 ML IVP ONE (23:11)
[2022-01-26] MEDS ORDERED: Dextrose Gel 15 GM/37.5 ML TUBE PO PRN ×2 (23:12)
[2022-01-26] MEDS ORDERED: *HR* Dextrose 50 % in Water (Syg) 50 ML SYRINGE IVP PRN (23:12)
[2022-01-26] MEDS ORDERED: D5% in Water 1,000 ML IVC PRN (23:12)
[2022-01-26 23:29] LABS: Alanine Aminotransferase 33 Units/L (7-52); Albumin 2.9 g/dL (3.5-5.7); Albumin/Globulin Ratio 0.9 (1.1-2.2); Alkaline Phosphatase 144 Units/L (34-104); Aspartate Amino Transferase 31 Units/L (13-39); BUN/Creatinine Ratio 24 (6-26); Bilirubin,Total 2.6 mg/dL (0.3-1.0); Blood Urea Nitrogen 26 mg/dL (8-23); Calcium 8.8 mg/dL (8.6-10.3); Carbon Dioxide 22 mEq/L (23-29); Chloride 108 mEq/L (98-107); Globulin 3.2 g/dL (2.4-3.5); Glucose 82 mg/dL (70-105); Osmolality,Calculated 290 (280-300); Potassium 3.8 mEq/L (3.5-5.1); Sodium 138 mEq/L (136-145); Total Protein 6.1 g/dL (6.4-8.9); eGFR For African Americans > 60 (> 60); eGFR For Non-African Americans > 60 (> 60)
[2022-01-26 23:59] LABS: INR 1.2; Prothrombin Time 13.8 Seconds (9.4-12.1)
[2022-01-27] MEDS: Albumin 25% 25gram/100mL 25 GM/100 ML IV.SOLN IVC SCH ×3 (00:53→04:35)
[2022-01-27] MEDS: Insulin LISPRO 300 UNITS/3 ML VIAL SUBQ SCH ×5 (01:43→23:45)
[2022-01-27 05:26] LABS: BUN/Creatinine Ratio 23 (6-26); Blood Urea Nitrogen 27 mg/dL (8-23); Calcium 9.4 mg/dL (8.6-10.3); Carbon Dioxide 23 mEq/L (23-29); Chloride 107 mEq/L (98-107); Chol/HDL Ratio 3.5 (0-4.9); Cholesterol 143 mg/dL (< 200); Glucose 76 mg/dL (70-105); HDL Cholesterol 41 mg/dL (40-59); LDL Cholesterol,Calculated 88 mg/dL (< 100); Osmolality,Calculated 292 (280-300); Phosphorous 3.2 mg/dL (2.7-4.5); Potassium 3.8 mEq/L (3.5-5.1); Sodium 139 mEq/L (136-145); Triglycerides 70 mg/dL (< 150); eGFR For African Americans > 60 (> 60); eGFR For Non-African Americans 59 (> 60)
[2022-01-27] MEDS: Lactulose 200 GM, Sodium Chloride IRRigation 700 ML RC SCH ×3 (06:35→22:45)
[2022-01-27] MEDS: *HR* Enoxaparin 40 MG/0.4 ML SYRINGE SQ SCH (06:35)
[2022-01-27] MEDS: cefTRIAXone 1,000 MG in Water for inj. (sterile) 10 ML IVP SCH (07:57)
[2022-01-27] MEDS ORDERED: Levothyroxine Sodium 100 MCG VIAL IVP SCH (09:00)
[2022-01-27] MEDS ORDERED: Ketorolac 30 MG/ML VIAL IVP ONE (12:03)
[2022-01-27] MEDS: D5% in Water 1,000 ML IVC SCH (12:22)
[2022-01-27 19:22] LABS: mecA/C Methicillin-Resist Gene DETECTED (Not Detect)
[2022-01-27 19:23] LABS: Staph epidermidis by PCR DETECTED (Not Detect)
[2022-01-27 19:24] LABS: A.calcoaceticus-baumannii cplx Not Detected (Not Detect); Bacteroides fragilis by PCR Not Detected (Not Detect); Candida albicans by PCR Not Detected (Not Detect); Candida auris by PCR Not Detected (Not Detect); Candida glabrata by PCR Not Detected (Not Detect); Candida krusei by PCR Not Detected (Not Detect); Candida parapsilosis by PCR Not Detected (Not Detect); Candida tropicalis by PCR Not Detected (Not Detect); Crypto. neoformans/gattii PCR Not Detected (Not Detect); Enterobacter cloacae Cmplx PCR Not Detected (Not Detect); Enterobacterales by PCR Not Detected (Not Detect); Enterococcus faecalis by PCR Not Detected (Not Detect); Enterococcus faecium by PCR Not Detected (Not Detect); Escherichia coli by PCR Not Detected (Not Detect); Klebs. pneumoniae group by PCR Not Detected (Not Detect); Klebsiella aerogenes by PCR Not Detected (Not Detect); Klebsiella oxytoca by PCR Not Detected (Not Detect); Proteus by PCR Not Detected (Not Detect); Pseudomonas aeruginosa by PCR Not Detected (Not Detect); Salmonella species by PCR Not Detected (Not Detect); Serratia marcescens by PCR Not Detected (Not Detect); Staph lugdunensis by PCR Not Detected (Not Detect); Staphylococcus aureus by PCR Not Detected (Not Detect); Stenotrophomonas maltophilia Not Detected (Not Detect); Streptococcus agalactiae(B)PCR Not Detected (Not Detect); Streptococcus by PCR Not Detected (Not Detect); Streptococcus pneumoniae PCR Not Detected (Not Detect); Streptococcus pyogenes (A) PCR Not Detected (Not Detect)
[2022-01-28 02:05] LABS: Bacteria,Urine Few per hpf (None-Few); Bilirubin,Urine Negative (Negative); Blood,Urine Negative (Negative); Clarity,Urine Clear (Clear); Color,Urine Yellow (Yellow); Glucose,Urine (UA) Normal (Normal); Hyaline Casts,Urine Few per lpf (None Seen); Ketones,Urine Trace mg/dL (Negative); Leukocyte Esterase,Urine Negative (Negative); Mucus,Urine Few per lpf (None-Few); Nitrite,Urine Negative (Negative); Protein,Urine 30 mg/dL (Neg-Trace); Specific Gravity,Urine > 1.030 (1.010-1.025); Squamous Epithelial Cell,Urine Few per hpf (None-Few)
[2022-01-28 02:09] LABS: Hematocrit 27.5 % (37.5-50.1); Mean Corpuscular HGB Conc 33.5 g/dL (31.6-35.5); Mean Corpuscular Volume 86.8 fL (83.0-100.0); Mean Platelet Volume 9.4 fL (9.4-12.4); Platelet Count 122 K/mcL (140-400); Red Blood Count 3.17 M/mcL (4.19-5.50); Red Cell Distribution Width 16.3 % (11.5-14.5); White Blood Count 5.3 K/mcL (4.3-11.1)
[2022-01-28 02:10] LABS: Hemoglobin 9.2 g/dL (12.9-16.9)
[2022-01-28 02:25] LABS: Alanine Aminotransferase 21 Units/L (7-52); Albumin 3.4 g/dL (3.5-5.7); Albumin/Globulin Ratio 1.3 (1.1-2.2); Alkaline Phosphatase 120 Units/L (34-104); Aspartate Amino Transferase 24 Units/L (13-39); BUN/Creatinine Ratio 27 (6-26); Bilirubin,Direct 0.6 mg/dL (0.0-0.2); Bilirubin,Indirect 1.2 mg/dL (0.0-1.0); Bilirubin,Total 1.8 mg/dL (0.3-1.0); Blood Urea Nitrogen 34 mg/dL (8-23); Calcium 9.1 mg/dL (8.6-10.3); Carbon Dioxide 20 mEq/L (23-29); Chloride 106 mEq/L (98-107); Globulin 2.6 g/dL (2.4-3.5); Glucose 116 mg/dL (70-105); Osmolality,Calculated 291 (280-300); Potassium 3.4 mEq/L (3.5-5.1); Sodium 136 mEq/L (136-145); eGFR For African Americans > 60 (> 60); eGFR For Non-African Americans 55 (> 60)
[2022-01-28] MEDS: D5% in Water 1,000 ML IVC SCH (02:57)
[2022-01-28] MEDS: Insulin LISPRO 300 UNITS/3 ML VIAL SUBQ SCH ×3 (05:32→18:52)
[2022-01-28] MEDS: *HR* Enoxaparin 40 MG/0.4 ML SYRINGE SQ SCH (07:25)
[2022-01-28] MEDS: Lactulose 200 GM, Sodium Chloride IRRigation 700 ML RC SCH (07:46)
[2022-01-28] MEDS: Cyanocobalamin (B-12) 1,000 MCG TABLET PO SCH (08:46)
[2022-01-28] MEDS: Aspirin Enteric Coated 81 MG Tablet PO SCH (08:47)
[2022-01-28] MEDS: cefTRIAXone 1,000 MG in Water for inj. (sterile) 10 ML IVP SCH (08:47)
[2022-01-28] MEDS: Albumin 25% 25gram/100mL 25 GM/100 ML IV.SOLN IVC SCH (14:50)
[2022-01-28] MEDS ORDERED: rifAMPin 150 MG CAPSULE PO SCH (16:30)
[2022-01-28] MEDS: Lactulose Oral Soln 20 GM/30 ML UDC PO SCH (20:56)
[2022-01-28] MEDS: *HR* OxyCODONE Immed Rel 5 MG TABLET PO PRN (20:56)
[2022-01-28] MEDS: Melatonin 3 MG TABLET PO PRN (20:56)
[2022-01-29] MEDS: Insulin LISPRO 300 UNITS/3 ML VIAL SUBQ SCH ×4 (01:36→17:12)
[2022-01-29 02:27] LABS: Hematocrit 26.7 % (37.5-50.1); Hemoglobin 9.1 g/dL (12.9-16.9); Mean Corpuscular HGB Conc 34.1 g/dL (31.6-35.5); Mean Corpuscular Hemoglobin 29.2 pg (28.0-33.3); Mean Corpuscular Volume 85.6 fL (83.0-100.0); Mean Platelet Volume 9.7 fL (9.4-12.4); Platelet Count 133 K/mcL (140-400); Red Blood Count 3.12 M/mcL (4.19-5.50); Red Cell Distribution Width 16.6 % (11.5-14.5); White Blood Count 5.9 K/mcL (4.3-11.1)
[2022-01-29 02:56] LABS: BUN/Creatinine Ratio 24 (6-26); Blood Urea Nitrogen 28 mg/dL (8-23); Carbon Dioxide 21 mEq/L (23-29); Chloride 104 mEq/L (98-107); Glucose 142 mg/dL (70-105); Osmolality,Calculated 282 (280-300); Potassium 4.2 mEq/L (3.5-5.1); Sodium 132 mEq/L (136-145); eGFR For African Americans > 60 (> 60); eGFR For Non-African Americans 59 (> 60)
[2022-01-29] MEDS: *HR* Enoxaparin 40 MG/0.4 ML SYRINGE SQ SCH (06:05)
[2022-01-29] MEDS: Cyanocobalamin (B-12) 1,000 MCG TABLET PO SCH (08:15)
[2022-01-29] MEDS: Aspirin Enteric Coated 81 MG Tablet PO SCH (08:15)
[2022-01-29] MEDS: Lactulose Oral Soln 20 GM/30 ML UDC PO SCH ×2 (08:15→20:25)
[2022-01-29] MEDS ORDERED: 0.9 % Sodium Chloride 1,000 ML ONE (20:16)
[2022-01-29] MEDS ORDERED: 0.9 % Sodium Chloride 500 ML IVC ONE (20:24)
[2022-01-29] MEDS: Albumin 25% 25gram/100mL 25 GM/100 ML IV.SOLN IVC SCH ×2 (21:09→22:43)
[2022-01-29] MEDS ORDERED: 0.9 % Sodium Chloride 250 ML IVC ONE (23:18)
[2022-01-30] MEDS: Insulin LISPRO 300 UNITS/3 ML VIAL SUBQ SCH ×4 (00:39→18:05)
[2022-01-30] MEDS: *HR* Enoxaparin 40 MG/0.4 ML SYRINGE SQ SCH (06:02)
[2022-01-30] MEDS: Cyanocobalamin (B-12) 1,000 MCG TABLET PO SCH (07:56)
[2022-01-30] MEDS: Lactulose Oral Soln 20 GM/30 ML UDC PO SCH ×2 (07:56→21:08)
[2022-01-30] MEDS: Aspirin Enteric Coated 81 MG Tablet PO SCH (07:56)
[2022-01-30] MEDS: Melatonin 3 MG TABLET PO PRN (21:08)
[2022-01-30] MEDS: *HR* OxyCODONE Immed Rel 5 MG TABLET PO PRN (21:08)
[2022-01-31] MEDS: Insulin LISPRO 300 UNITS/3 ML VIAL SUBQ SCH ×4 (01:42→17:06)
[2022-01-31] MEDS: *HR* Enoxaparin 40 MG/0.4 ML SYRINGE SQ SCH (06:28)
[2022-01-31] MEDS: Lactulose Oral Soln 20 GM/30 ML UDC PO SCH ×3 (09:34→21:18)
[2022-01-31] MEDS: Cyanocobalamin (B-12) 1,000 MCG TABLET PO SCH (09:35)
[2022-01-31] MEDS: Aspirin Enteric Coated 81 MG Tablet PO SCH (09:35)
[2022-02-01] MEDS: *HR* Enoxaparin 40 MG/0.4 ML SYRINGE SQ SCH (05:22)
[2022-02-01] MEDS: Insulin LISPRO 300 UNITS/3 ML VIAL SUBQ SCH ×3 (08:08→17:16)
[2022-02-01] MEDS: Aspirin Enteric Coated 81 MG Tablet PO SCH (08:09)
[2022-02-01] MEDS: Cyanocobalamin (B-12) 1,000 MCG TABLET PO SCH (08:09)
[2022-02-01] MEDS: Lactulose Oral Soln 20 GM/30 ML UDC PO SCH ×3 (08:09→20:25)
[2022-02-02] MEDS: *HR* Enoxaparin 40 MG/0.4 ML SYRINGE SQ SCH (05:57)
[2022-02-02] MEDS: Insulin LISPRO 300 UNITS/3 ML VIAL SUBQ SCH ×3 (08:05→17:01)
[2022-02-02] MEDS: Lactulose Oral Soln 20 GM/30 ML UDC PO SCH ×3 (08:48→20:48)
[2022-02-02] MEDS: Aspirin Enteric Coated 81 MG Tablet PO SCH (08:48)
[2022-02-02] MEDS: Cyanocobalamin (B-12) 1,000 MCG TABLET PO SCH (08:48)
[2022-02-02] MEDS: Melatonin 3 MG TABLET PO PRN (20:49)
[2022-02-03 03:58] LABS: Hematocrit 25.7 % (37.5-50.1); Hemoglobin 8.6 g/dL (12.9-16.9); Mean Corpuscular HGB Conc 33.5 g/dL (31.6-35.5); Mean Corpuscular Hemoglobin 29.1 pg (28.0-33.3); Mean Corpuscular Volume 86.8 fL (83.0-100.0); Mean Platelet Volume 9.6 fL (9.4-12.4); Platelet Count 146 K/mcL (140-400); Red Blood Count 2.96 M/mcL (4.19-5.50); Red Cell Distribution Width 17.2 % (11.5-14.5); White Blood Count 4.1 K/mcL (4.3-11.1)
[2022-02-03 04:18] LABS: Alanine Aminotransferase 34 Units/L (7-52); Albumin/Globulin Ratio 1.1 (1.1-2.2); Alkaline Phosphatase 216 Units/L (34-104); Aspartate Amino Transferase 52 Units/L (13-39); BUN/Creatinine Ratio 16 (6-26); Bilirubin,Total 1.2 mg/dL (0.3-1.0); Blood Urea Nitrogen 19 mg/dL (8-23); Calcium 9.2 mg/dL (8.6-10.3); Carbon Dioxide 25 mEq/L (23-29); Chloride 103 mEq/L (98-107); Globulin 2.8 g/dL (2.4-3.5); Glucose 123 mg/dL (70-105); Magnesium 1.6 mg/dL (1.6-2.6); Osmolality,Calculated 284 (280-300); Potassium 3.8 mEq/L (3.5-5.1); Sodium 135 mEq/L (136-145); Total Protein 5.8 g/dL (6.4-8.9); eGFR For African Americans > 60 (> 60); eGFR For Non-African Americans 57 (> 60)
[2022-02-03] MEDS: *HR* Enoxaparin 40 MG/0.4 ML SYRINGE SQ SCH (05:13)
[2022-02-03] MEDS: Insulin LISPRO 300 UNITS/3 ML VIAL SUBQ SCH ×3 (08:26→17:25)
[2022-02-03] MEDS: Lactulose Oral Soln 20 GM/30 ML UDC PO SCH ×3 (08:34→20:06)
[2022-02-03] MEDS: Aspirin Enteric Coated 81 MG Tablet PO SCH (08:34)
[2022-02-03] MEDS: Cyanocobalamin (B-12) 1,000 MCG TABLET PO SCH (08:34)
[2022-02-04] MEDS: *HR* Enoxaparin 40 MG/0.4 ML SYRINGE SQ SCH (06:01)
[2022-02-04] MEDS: Lactulose Oral Soln 20 GM/30 ML UDC PO SCH ×3 (08:35→22:14)
[2022-02-04] MEDS: Cyanocobalamin (B-12) 1,000 MCG TABLET PO SCH (08:36)
[2022-02-04] MEDS: Aspirin Enteric Coated 81 MG Tablet PO SCH (08:36)
[2022-02-04] MEDS: Insulin LISPRO 300 UNITS/3 ML VIAL SUBQ SCH ×3 (08:37→17:44)
[2022-02-05] MEDS: *HR* Enoxaparin 40 MG/0.4 ML SYRINGE SQ SCH (05:11)
[2022-02-05] MEDS: Aspirin Enteric Coated 81 MG Tablet PO SCH (09:35)
[2022-02-05] MEDS: Cyanocobalamin (B-12) 1,000 MCG TABLET PO SCH (09:35)
[2022-02-05] MEDS: Insulin LISPRO 300 UNITS/3 ML VIAL SUBQ SCH ×3 (09:35→17:36)
[2022-02-05] MEDS: Lactulose Oral Soln 20 GM/30 ML UDC PO SCH ×3 (09:36→21:03)
[2022-02-05] MEDS: Melatonin 3 MG TABLET PO PRN (21:03)
[2022-02-06] MEDS: *HR* Enoxaparin 40 MG/0.4 ML SYRINGE SQ SCH (06:33)
[2022-02-06] MEDS: Insulin LISPRO 300 UNITS/3 ML VIAL SUBQ SCH ×3 (08:11→17:13)
[2022-02-06] MEDS: Lactulose Oral Soln 20 GM/30 ML UDC PO SCH ×3 (08:15→20:07)
[2022-02-06] MEDS: Aspirin Enteric Coated 81 MG Tablet PO SCH (08:15)
[2022-02-06] MEDS: Cyanocobalamin (B-12) 1,000 MCG TABLET PO SCH (08:16)
[2022-02-06] MEDS: Artificial Tears SOLN 15 ML BOTTLE BOTH EYES PRN ×2 (11:47→22:53)
[2022-02-06] MEDS: Ofloxacin OPTH Drops 5 ML BOTTLE LEFT EYE SCH ×2 (14:57→20:07)
[2022-02-06] MEDS ORDERED: Albumin 25% 25gram/100mL 25 GM/100 ML IV.SOLN IVPB ONE (20:07)
[2022-02-06] MEDS ORDERED: 0.9 % Sodium Chloride 250 ML IVC ONE (22:24)
[2022-02-07] MEDS: Ofloxacin OPTH Drops 5 ML BOTTLE LEFT EYE SCH ×6 (00:18→20:10)
[2022-02-07 03:29] LABS: Hemoglobin 7.9 g/dL (12.9-16.9); Mean Corpuscular HGB Conc 32.9 g/dL (31.6-35.5); Mean Corpuscular Hemoglobin 28.6 pg (28.0-33.3); Mean Platelet Volume 9.7 fL (9.4-12.4); Platelet Count 130 K/mcL (140-400); Red Blood Count 2.76 M/mcL (4.19-5.50); Red Cell Distribution Width 17.7 % (11.5-14.5); White Blood Count 4.1 K/mcL (4.3-11.1)
[2022-02-07 03:45] LABS: Alanine Aminotransferase 67 Units/L (7-52); Albumin 3.2 g/dL (3.5-5.7); Albumin/Globulin Ratio 1.1 (1.1-2.2); Alkaline Phosphatase 279 Units/L (34-104); Aspartate Amino Transferase 124 Units/L (13-39); BUN/Creatinine Ratio 16 (6-26); Bilirubin,Total 3.7 mg/dL (0.3-1.0); Blood Urea Nitrogen 20 mg/dL (8-23); Calcium 9.8 mg/dL (8.6-10.3); Carbon Dioxide 27 mEq/L (23-29); Chloride 103 mEq/L (98-107); Globulin 2.8 g/dL (2.4-3.5); Glucose 129 mg/dL (70-105); Magnesium 1.7 mg/dL (1.6-2.6); Osmolality,Calculated 284 (280-300); Potassium 4.1 mEq/L (3.5-5.1); Sodium 135 mEq/L (136-145); eGFR For African Americans > 60 (> 60); eGFR For Non-African Americans 54 (> 60)
[2022-02-07] MEDS ORDERED: 0.9 % Sodium Chloride 500 ML IVC ONE (04:03)
[2022-02-07] MEDS ORDERED: Albumin 25% 25gram/100mL 25 GM/100 ML IV.SOLN IVPB ONE (04:44)
[2022-02-07] MEDS: *HR* Enoxaparin 40 MG/0.4 ML SYRINGE SQ SCH (05:08)
[2022-02-07] MEDS ORDERED: 0.9 % Sodium Chloride 250 ML IVC ONE (06:13)
[2022-02-07] MEDS: Insulin LISPRO 300 UNITS/3 ML VIAL SUBQ SCH ×3 (08:37→16:48)
[2022-02-07] MEDS: Aspirin Enteric Coated 81 MG Tablet PO SCH (08:45)
[2022-02-07] MEDS: Cyanocobalamin (B-12) 1,000 MCG TABLET PO SCH (08:45)
[2022-02-07] MEDS: Lactulose Oral Soln 20 GM/30 ML UDC PO SCH ×3 (08:45→20:24)
[2022-02-07] MEDS ORDERED: Albumin 25% 25gram/100mL 25 GM/100 ML IV.SOLN IVPB STA (09:13)
[2022-02-07] MEDS ORDERED: Vancomycin (wt based) 1,000 MG VIAL IVPB SCH (10:00)
[2022-02-07] MEDS ORDERED: Vancomycin 1,500 MG/265 ML IV.SOLN IVPB ONE (10:00)
[2022-02-07] MEDS: Cefepime HCl 2,000 MG in 0.9 % Sodium Chloride 10 ML IVP SCH ×2 (10:06→20:25)
[2022-02-07 10:21] LABS: Basophils % 0.8 %; Eosinophils # 0.3 K/mcL (0.0-0.6); Eosinophils % 7.3 %; Hematocrit 25.5 % (37.5-50.1); Hemoglobin 8.5 g/dL (12.9-16.9); Immature Granulocytes % 0.5 % (0-4); Lymphocytes # 0.7 K/mcL (0.6-4.6); Lymphocytes % 18.4 %; Mean Corpuscular HGB Conc 33.3 g/dL (31.6-35.5); Mean Corpuscular Hemoglobin 29.3 pg (28.0-33.3); Mean Corpuscular Volume 87.9 fL (83.0-100.0); Mean Platelet Volume 9.3 fL (9.4-12.4); Monocytes # 0.5 K/mcL (0.0-1.3); Monocytes % 11.7 %; Neutrophils # 2.4 K/mcL (1.6-8.9); Platelet Count 132 K/mcL (140-400); Red Cell Distribution Width 17.8 % (11.5-14.5); Segmented Neutrophils % 61.3 %; White Blood Count 3.9 K/mcL (4.3-11.1)
[2022-02-07 10:45] LABS: Alanine Aminotransferase 72 Units/L (7-52); Albumin 3.7 g/dL (3.5-5.7); Albumin/Globulin Ratio 1.4 (1.1-2.2); Alkaline Phosphatase 321 Units/L (34-104); Aspartate Amino Transferase 123 Units/L (13-39); BUN/Creatinine Ratio 14 (6-26); Bilirubin,Total 4.2 mg/dL (0.3-1.0); Blood Urea Nitrogen 18 mg/dL (8-23); Carbon Dioxide 28 mEq/L (23-29); Chloride 102 mEq/L (98-107); Globulin 2.7 g/dL (2.4-3.5); Glucose 146 mg/dL (70-105); Magnesium 1.8 mg/dL (1.6-2.6); Osmolality,Calculated 283 (280-300); Potassium 4.1 mEq/L (3.5-5.1); Sodium 134 mEq/L (136-145); Total Protein 6.4 g/dL (6.4-8.9); Troponin I < 0.03 ng/mL (< 0.04); eGFR For African Americans > 60 (> 60); eGFR For Non-African Americans 54 (> 60)
[2022-02-07 14:26] LABS: Bacteria,Urine Few per hpf (None-Few); Bilirubin,Urine Negative (Negative); Blood,Urine Large (Negative); Clarity,Urine Clear (Clear); Color,Urine Yellow (Yellow); Glucose,Urine (UA) Normal (Normal); Ketones,Urine Negative (Negative); Leukocyte Esterase,Urine Negative (Negative); Mucus,Urine Few per lpf (None-Few); Nitrite,Urine Negative (Negative); PH,Urine 6.5 pH Units (5.0-8.0); Protein,Urine 30 mg/dL (Neg-Trace); RBC,Urine TNTC per hpf (0-3); Specific Gravity,Urine 1.018 (1.010-1.025); Squamous Epithelial Cell,Urine Few per hpf (None-Few); Urobilinogen,Urine Normal (Normal); WBC,Urine 0-3 per hpf (0-3)
[2022-02-07] MEDS: *HR* OxyCODONE Immed Rel 5 MG TABLET PO PRN (19:19)
[2022-02-07] MEDS ORDERED: Ketorolac 30 MG/ML VIAL IVP ONE (20:08)
[2022-02-08] MEDS: Ofloxacin OPTH Drops 5 ML BOTTLE LEFT EYE SCH ×7 (00:08→23:11)
[2022-02-08] MEDS: *HR* Enoxaparin 40 MG/0.4 ML SYRINGE SQ SCH (05:22)
[2022-02-08] MEDS: Insulin LISPRO 300 UNITS/3 ML VIAL SUBQ SCH ×3 (07:35→16:38)
[2022-02-08] MEDS: Aspirin Enteric Coated 81 MG Tablet PO SCH (07:40)
[2022-02-08] MEDS: Lactulose Oral Soln 20 GM/30 ML UDC PO SCH ×3 (07:40→20:45)
[2022-02-08] MEDS: *HR* OxyCODONE Immed Rel 5 MG TABLET PO PRN (07:40)
[2022-02-08] MEDS: Cyanocobalamin (B-12) 1,000 MCG TABLET PO SCH (07:41)
[2022-02-08 08:56] LABS: Hematocrit 25.5 % (37.5-50.1); Hemoglobin 8.6 g/dL (12.9-16.9); Mean Corpuscular HGB Conc 33.7 g/dL (31.6-35.5); Mean Corpuscular Hemoglobin 29.8 pg (28.0-33.3); Mean Corpuscular Volume 88.2 fL (83.0-100.0); Mean Platelet Volume 9.9 fL (9.4-12.4); Platelet Count 127 K/mcL (140-400); Red Blood Count 2.89 M/mcL (4.19-5.50); Red Cell Distribution Width 18.2 % (11.5-14.5)
[2022-02-08 08:58] LABS: White Blood Count 6.2 K/mcL (4.3-11.1)
[2022-02-08 09:05] LABS: Adenovirus Not Detected (Not Detect); Bordetella Pertussis Not Detected (Not Detect); Chlamydophila pneumoniae Not Detected (Not Detect); Coronavirus 229E Not Detected (Not Detect); Coronavirus HKU1 Not Detected (Not Detect); Coronavirus NL63 Not Detected (Not Detect); Coronavirus OC43 Not Detected (Not Detect); Human Metapneumovirus Not Detected (Not Detect); Human Rhinovirus/Enterovirus Not Detected (Not Detect); Influenza A Subtype 2009 H1 Not Detected (Not Detect); Influenza B Not Detected (Not Detect); Mycoplasma pneumoniae Not Detected (Not Detect); Parainfluenza Virus 1 Not Detected (Not Detect); Parainfluenza Virus 2 Not Detected (Not Detect); Parainfluenza Virus 3 Not Detected (Not Detect); Parainfluenza Virus 4 Not Detected (Not Detect); Respiratory Syncytial Virus Not Detected (Not Detect); SARS-CoV-2 Not Detected (Not Detect)
[2022-02-08 09:11] LABS: Albumin 3.4 g/dL (3.5-5.7); Albumin/Globulin Ratio 1.3 (1.1-2.2); Bilirubin,Direct 2.7 mg/dL (0.0-0.2); Bilirubin,Indirect 2.1 mg/dL (0.0-1.0); Bilirubin,Total 4.8 mg/dL (0.3-1.0); Calcium 9.8 mg/dL (8.6-10.3); Globulin 2.7 g/dL (2.4-3.5); Potassium 3.9 mEq/L (3.5-5.1); Total Protein 6.1 g/dL (6.4-8.9)
[2022-02-08] MEDS ORDERED: 0.9 % Sodium Chloride 1,000 ML IVC SCH (09:45)
[2022-02-08] MEDS ORDERED: Vancomycin 1,500 MG/265 ML IV.SOLN IVPB SCH (11:00)
[2022-02-08] MEDS: Piperacillin/Tazobactam 3.375 GM in 0.9 % Sodium Chloride Mini Bag 100 ML IVPB SCH ×2 (11:37→18:31)
[2022-02-08 13:17] LABS: Hepatitis B Surface Antigen Nonreactive (Nonreactive)
[2022-02-08 13:45] LABS: Hepatitis C Virus Antibody Nonreactive (Nonreactive)
[2022-02-08 13:46] LABS: Hepatitis B Core IgM Nonreactive (Nonreactive)
[2022-02-08 13:47] LABS: Hepatitis A Antibody IgM Nonreactive (Nonreactive)
[2022-02-08 18:10] LABS: Appearance of Peritoneal Fl CLEAR (Clear)
[2022-02-08 18:13] LABS: RBC,Peritoneal Fluid 2000 RBC/mcL
[2022-02-08 18:32] LABS: Total Protein,Peritoneal Fluid 3.3 g/dL
[2022-02-08 20:21] LABS: Basophils,Peritoneal Fluid 0 %; Eosinophils,Peritoneal Fluid 0 %
[2022-02-09] MEDS: Piperacillin/Tazobactam 3.375 GM in 0.9 % Sodium Chloride Mini Bag 100 ML IVPB SCH ×3 (01:57→18:25)
[2022-02-09 03:55] LABS: Hematocrit 24.4 % (37.5-50.1); Hemoglobin 8.2 g/dL (12.9-16.9); Mean Corpuscular HGB Conc 33.6 g/dL (31.6-35.5); Mean Corpuscular Hemoglobin 29.5 pg (28.0-33.3); Mean Corpuscular Volume 87.8 fL (83.0-100.0); Mean Platelet Volume 10.2 fL (9.4-12.4); Platelet Count 142 K/mcL (140-400); Red Blood Count 2.78 M/mcL (4.19-5.50); Red Cell Distribution Width 17.9 % (11.5-14.5); White Blood Count 4.8 K/mcL (4.3-11.1)
[2022-02-09 04:02] LABS: INR 1.5; Prothrombin Time 16.7 Seconds (9.4-12.1)
[2022-02-09 04:14] LABS: Albumin/Globulin Ratio 1.2 (1.1-2.2); Bilirubin,Direct 1.9 mg/dL (0.0-0.2); Bilirubin,Indirect 1.4 mg/dL (0.0-1.0); Bilirubin,Total 3.3 mg/dL (0.3-1.0); Calcium 9.3 mg/dL (8.6-10.3); Globulin 2.5 g/dL (2.4-3.5); Potassium 4.1 mEq/L (3.5-5.1); Total Protein 5.5 g/dL (6.4-8.9)
[2022-02-09] MEDS: Ofloxacin OPTH Drops 5 ML BOTTLE LEFT EYE SCH ×5 (04:51→21:41)
[2022-02-09] MEDS: *HR* Enoxaparin 40 MG/0.4 ML SYRINGE SQ SCH (05:15)
[2022-02-09] MEDS: Insulin LISPRO 300 UNITS/3 ML VIAL SUBQ SCH ×3 (07:56→17:50)
[2022-02-09] MEDS: Aspirin Enteric Coated 81 MG Tablet PO SCH (07:57)
[2022-02-09] MEDS: Lactulose Oral Soln 20 GM/30 ML UDC PO SCH ×3 (07:57→21:40)
[2022-02-09] MEDS: Cyanocobalamin (B-12) 1,000 MCG TABLET PO SCH (07:57)
[2022-02-10] MEDS: Ofloxacin OPTH Drops 5 ML BOTTLE LEFT EYE SCH ×5 (01:40→16:53)
[2022-02-10 02:11] LABS: Hematocrit 24.9 % (37.5-50.1); Hemoglobin 8.2 g/dL (12.9-16.9); Mean Corpuscular HGB Conc 32.9 g/dL (31.6-35.5); Mean Corpuscular Hemoglobin 28.6 pg (28.0-33.3); Mean Corpuscular Volume 86.8 fL (83.0-100.0); Mean Platelet Volume 10.5 fL (9.4-12.4); Platelet Count 136 K/mcL (140-400); Red Blood Count 2.87 M/mcL (4.19-5.50); White Blood Count 4.8 K/mcL (4.3-11.1)
[2022-02-10] MEDS: Piperacillin/Tazobactam 3.375 GM in 0.9 % Sodium Chloride Mini Bag 100 ML IVPB SCH ×3 (02:17→16:53)
[2022-02-10 02:29] LABS: Calcium 9.2 mg/dL (8.6-10.3); Potassium 4.3 mEq/L (3.5-5.1)
[2022-02-10] MEDS: *HR* Enoxaparin 40 MG/0.4 ML SYRINGE SQ SCH (06:56)
[2022-02-10] MEDS: Insulin LISPRO 300 UNITS/3 ML VIAL SUBQ SCH ×3 (08:32→16:51)
[2022-02-10] MEDS: Lactulose Oral Soln 20 GM/30 ML UDC PO SCH ×2 (08:39→14:03)
[2022-02-10] MEDS: Cyanocobalamin (B-12) 1,000 MCG TABLET PO SCH (08:39)
[2022-02-10] MEDS: Aspirin Enteric Coated 81 MG Tablet PO SCH (08:40)
[2022-02-10 18:11] LABS: Fluid Source for Albumin ASCITES
[2022-02-11] MEDS: Melatonin 3 MG TABLET PO PRN (00:15)
[2022-02-11] MEDS: Lactulose Oral Soln 20 GM/30 ML UDC PO SCH ×4 (00:15→20:31)
[2022-02-11] MEDS: Ofloxacin OPTH Drops 5 ML BOTTLE LEFT EYE SCH ×5 (00:15→12:25)
[2022-02-11] MEDS: Piperacillin/Tazobactam 3.375 GM in 0.9 % Sodium Chloride Mini Bag 100 ML IVPB SCH ×3 (00:16→18:19)
[2022-02-11] MEDS: *HR* Enoxaparin 40 MG/0.4 ML SYRINGE SQ SCH (06:23)
[2022-02-11] MEDS: Aspirin Enteric Coated 81 MG Tablet PO SCH (09:59)
[2022-02-11] MEDS: Cyanocobalamin (B-12) 1,000 MCG TABLET PO SCH (09:59)
[2022-02-11] MEDS: Insulin LISPRO 300 UNITS/3 ML VIAL SUBQ SCH ×3 (10:00→20:31)
[2022-02-11] MEDS: Artificial Tears SOLN 15 ML BOTTLE BOTH EYES PRN (10:01)
[2022-02-11 11:07] LABS: Fluid Source for Triglycerides ASCITES FLUID; Triglycerides,Body Fluid 35 mg/dL
[2022-02-12] MEDS: Piperacillin/Tazobactam 3.375 GM in 0.9 % Sodium Chloride Mini Bag 100 ML IVPB SCH ×3 (01:26→18:34)
[2022-02-12] MEDS: *HR* Enoxaparin 40 MG/0.4 ML SYRINGE SQ SCH (05:25)
[2022-02-12] MEDS: Insulin LISPRO 300 UNITS/3 ML VIAL SUBQ SCH ×3 (07:29→16:38)
[2022-02-12] MEDS: Cyanocobalamin (B-12) 1,000 MCG TABLET PO SCH (09:01)
[2022-02-12] MEDS: Aspirin Enteric Coated 81 MG Tablet PO SCH (09:01)
[2022-02-12] MEDS: Lactulose Oral Soln 20 GM/30 ML UDC PO SCH ×3 (09:01→20:31)
[2022-02-12 13:20] LABS: Basophils # 0.1 K/mcL (0.0-0.2); Basophils % 1.3 %; Eosinophils # 0.4 K/mcL (0.0-0.6); Eosinophils % 8.4 %; Hematocrit 26.9 % (37.5-50.1); Hemoglobin 8.9 g/dL (12.9-16.9); Immature Granulocytes % 0.6 % (0-4); Lymphocytes # 0.8 K/mcL (0.6-4.6); Lymphocytes % 16.6 %; Mean Corpuscular HGB Conc 33.1 g/dL (31.6-35.5); Mean Corpuscular Volume 87.6 fL (83.0-100.0); Mean Platelet Volume 9.8 fL (9.4-12.4); Monocytes # 0.6 K/mcL (0.0-1.3); Monocytes % 12.8 %; Neutrophils # 2.9 K/mcL (1.6-8.9); Platelet Count 189 K/mcL (140-400); Red Blood Count 3.07 M/mcL (4.19-5.50); Red Cell Distribution Width 18.7 % (11.5-14.5); Segmented Neutrophils % 60.3 %; White Blood Count 4.8 K/mcL (4.3-11.1)
[2022-02-12 13:39] LABS: Alanine Aminotransferase 30 Units/L (7-52); Albumin 3.1 g/dL (3.5-5.7); Albumin/Globulin Ratio 1.1 (1.1-2.2); Alkaline Phosphatase 295 Units/L (34-104); Aspartate Amino Transferase 41 Units/L (13-39); BUN/Creatinine Ratio 16 (6-26); Bilirubin,Total 2.5 mg/dL (0.3-1.0); Blood Urea Nitrogen 22 mg/dL (8-23); Calcium 9.8 mg/dL (8.6-10.3); Carbon Dioxide 27 mEq/L (23-29); Chloride 102 mEq/L (98-107); Globulin 2.8 g/dL (2.4-3.5); Glucose 138 mg/dL (70-105); Osmolality,Calculated 284 (280-300); Potassium 4.2 mEq/L (3.5-5.1); Sodium 134 mEq/L (136-145); Total Protein 5.9 g/dL (6.4-8.9); eGFR For African Americans > 60 (> 60); eGFR For Non-African Americans 51 (> 60)
[2022-02-12] MEDS: Ofloxacin OPTH Drops 5 ML BOTTLE LEFT EYE SCH (16:48)
[2022-02-12] MEDS ORDERED: 0.9 % Sodium Chloride 500 ML IVC ONE (23:39)
[2022-02-12] MEDS ORDERED: 0.9 % Sodium Chloride 1,000 ML ONE (23:42)
[2022-02-13] MEDS: Piperacillin/Tazobactam 3.375 GM in 0.9 % Sodium Chloride Mini Bag 100 ML IVPB SCH (01:26)
[2022-02-13] MEDS: *HR* Enoxaparin 40 MG/0.4 ML SYRINGE SQ SCH (05:20)
[2022-02-13] MEDS: Insulin LISPRO 300 UNITS/3 ML VIAL SUBQ SCH ×3 (07:13→16:38)
[2022-02-13] MEDS: Cyanocobalamin (B-12) 1,000 MCG TABLET PO SCH (07:53)
[2022-02-13] MEDS: Aspirin Enteric Coated 81 MG Tablet PO SCH (07:53)
[2022-02-13] MEDS: Lactulose Oral Soln 20 GM/30 ML UDC PO SCH ×3 (07:53→20:23)
[2022-02-13] MEDS: Furosemide 20 MG TABLET PO SCH (08:31)
[2022-02-13] MEDS ORDERED: 0.9 % Sodium Chloride 500 ML IVC ONE (23:01)
[2022-02-14 02:22] LABS: BUN/Creatinine Ratio 18 (6-26); Blood Urea Nitrogen 24 mg/dL (8-23); Calcium 9.2 mg/dL (8.6-10.3); Carbon Dioxide 26 mEq/L (23-29); Chloride 102 mEq/L (98-107); Glucose 152 mg/dL (70-105); Osmolality,Calculated 283 (280-300); Potassium 4.1 mEq/L (3.5-5.1); Sodium 133 mEq/L (136-145); eGFR For African Americans > 60 (> 60); eGFR For Non-African Americans 51 (> 60)
[2022-02-14] MEDS: *HR* Enoxaparin 40 MG/0.4 ML SYRINGE SQ SCH (05:09)
[2022-02-14] MEDS: Insulin LISPRO 300 UNITS/3 ML VIAL SUBQ SCH ×3 (07:16→15:39)
[2022-02-14] MEDS: Aspirin Enteric Coated 81 MG Tablet PO SCH (08:09)
[2022-02-14] MEDS: Lactulose Oral Soln 20 GM/30 ML UDC PO SCH ×4 (08:09→20:49)
[2022-02-14] MEDS: Furosemide 20 MG TABLET PO SCH (08:10)
[2022-02-14] MEDS: Cyanocobalamin (B-12) 1,000 MCG TABLET PO SCH (08:10)
[2022-02-14 12:37] LABS: ABG Base Excess 1 mEq/L (-2 to 3); ABG HCO3 24 mEq/L (21-27); ABG Oxygen Saturation 97 % (95-98); ABG PCO2 30 mmHg (35-45); ABG PH 7.51 pH Units (7.32-7.45); ABG PO2 80 mmHg (85-104); ABG TCO2 25 mEq/L (20-26)
[2022-02-14] MEDS ORDERED: Morphine Sulfate 2 MG/ML SYRINGE IVP ONE (15:51)
[2022-02-14 16:09] LABS: Bilirubin,Urine Negative (Negative); Blood,Urine Negative (Negative); Clarity,Urine Clear (Clear); Color,Urine Light-Yellow (Yellow); Glucose,Urine (UA) Normal (Normal); Ketones,Urine Negative (Negative); Leukocyte Esterase,Urine Negative (Negative); Nitrite,Urine Negative (Negative); PH,Urine 6.5 pH Units (5.0-8.0); Protein,Urine Negative (Neg-Trace); Urobilinogen,Urine Normal (Normal)
[2022-02-15 07:22] LABS: Basophils # 0.1 K/mcL (0.0-0.2); Eosinophils # 0.4 K/mcL (0.0-0.6); Eosinophils % 8.4 %; Hematocrit 26.4 % (37.5-50.1); Hemoglobin 8.9 g/dL (12.9-16.9); Immature Granulocytes % 0.6 % (0-4); Lymphocytes # 0.7 K/mcL (0.6-4.6); Mean Corpuscular HGB Conc 33.7 g/dL (31.6-35.5); Mean Corpuscular Hemoglobin 29.9 pg (28.0-33.3); Mean Corpuscular Volume 88.6 fL (83.0-100.0); Mean Platelet Volume 9.6 fL (9.4-12.4); Monocytes # 0.7 K/mcL (0.0-1.3); Monocytes % 13.8 %; Neutrophils # 3.2 K/mcL (1.6-8.9); Platelet Count 177 K/mcL (140-400); Red Blood Count 2.98 M/mcL (4.19-5.50); Segmented Neutrophils % 62.2 %; White Blood Count 5.1 K/mcL (4.3-11.1)
[2022-02-15 07:59] LABS: Alanine Aminotransferase 25 Units/L (7-52); Albumin 2.9 g/dL (3.5-5.7); Alkaline Phosphatase 260 Units/L (34-104); Aspartate Amino Transferase 45 Units/L (13-39); BUN/Creatinine Ratio 19 (6-26); Bilirubin,Total 2.3 mg/dL (0.3-1.0); Blood Urea Nitrogen 26 mg/dL (8-23); Calcium 9.5 mg/dL (8.6-10.3); Carbon Dioxide 26 mEq/L (23-29); Chloride 102 mEq/L (98-107); Glucose 110 mg/dL (70-105); Osmolality,Calculated 285 (280-300); Potassium 4.4 mEq/L (3.5-5.1); Sodium 135 mEq/L (136-145); Total Protein 5.7 g/dL (6.4-8.9); eGFR For African Americans > 60 (> 60); eGFR For Non-African Americans 51 (> 60)
[2022-02-15 08:00] LABS: Globulin 2.8 g/dL (2.4-3.5)
[2022-02-15] MEDS: Lactulose Oral Soln 20 GM/30 ML UDC PO SCH ×3 (09:13→20:11)
[2022-02-15] MEDS: Aspirin Enteric Coated 81 MG Tablet PO SCH (09:13)
[2022-02-15] MEDS: Cyanocobalamin (B-12) 1,000 MCG TABLET PO SCH (09:14)
[2022-02-15] MEDS: Insulin LISPRO 300 UNITS/3 ML VIAL SUBQ SCH ×3 (09:14→16:12)
[2022-02-15] MEDS ORDERED: Lactulose 200 GM, Sodium Chloride IRRigation 700 ML RC ONE (10:45)
[2022-02-15] MEDS ORDERED: Gabapentin 100 MG CAPSULE PO ONE (11:45)
[2022-02-16] MEDS: Insulin LISPRO 300 UNITS/3 ML VIAL SUBQ SCH ×3 (07:13→15:58)
[2022-02-16] MEDS: Furosemide 20 MG TABLET PO SCH (08:22)
[2022-02-16] MEDS: Aspirin Enteric Coated 81 MG Tablet PO SCH (08:22)
[2022-02-16] MEDS: Cyanocobalamin (B-12) 1,000 MCG TABLET PO SCH (08:22)
[2022-02-16] MEDS: Lactulose Oral Soln 20 GM/30 ML UDC PO SCH ×3 (08:23→19:57)
[2022-02-17] MEDS: *HR* OxyCODONE Immed Rel 5 MG TABLET PO PRN (05:53)
[2022-02-17] MEDS: Insulin LISPRO 300 UNITS/3 ML VIAL SUBQ SCH ×3 (07:29→17:51)
[2022-02-17] MEDS: Lactulose Oral Soln 20 GM/30 ML UDC PO SCH ×3 (08:09→20:06)
[2022-02-17] MEDS: Cyanocobalamin (B-12) 1,000 MCG TABLET PO SCH (08:10)
[2022-02-17] MEDS: Aspirin Enteric Coated 81 MG Tablet PO SCH (08:10)
[2022-02-17] MEDS ORDERED: Morphine Sulfate 2 MG/ML SYRINGE IVP ONE (14:19)
[2022-02-17] MEDS ORDERED: Bisacodyl 10 MG RECTAL SUPPOSITORY RC PRN (15:31)
[2022-02-17] MEDS ORDERED: Morphine Sulfate 2 MG/ML SYRINGE IVP PRN (15:32)
[2022-02-18] MEDS: Aspirin Enteric Coated 81 MG Tablet PO SCH (09:42)
[2022-02-18] MEDS: Furosemide 20 MG TABLET PO SCH (09:42)
[2022-02-18] MEDS: Cyanocobalamin (B-12) 1,000 MCG TABLET PO SCH (09:42)
[2022-02-18] MEDS: Insulin LISPRO 300 UNITS/3 ML VIAL SUBQ SCH ×3 (09:43→16:19)
[2022-02-18] MEDS: Lactulose Oral Soln 20 GM/30 ML UDC PO SCH ×3 (09:43→20:46)
[2022-02-19 02:10] LABS: Hematocrit 25.1 % (37.5-50.1); Hemoglobin 8.4 g/dL (12.9-16.9); Mean Corpuscular HGB Conc 33.5 g/dL (31.6-35.5); Mean Corpuscular Hemoglobin 29.7 pg (28.0-33.3); Mean Corpuscular Volume 88.7 fL (83.0-100.0); Mean Platelet Volume 9.8 fL (9.4-12.4); Platelet Count 178 K/mcL (140-400); Red Blood Count 2.83 M/mcL (4.19-5.50); Red Cell Distribution Width 18.5 % (11.5-14.5); White Blood Count 4.7 K/mcL (4.3-11.1)
[2022-02-19 02:31] LABS: Alanine Aminotransferase 24 Units/L (7-52); Albumin 2.8 g/dL (3.5-5.7); Albumin/Globulin Ratio 0.9 (1.1-2.2); Alkaline Phosphatase 246 Units/L (34-104); Aspartate Amino Transferase 43 Units/L (13-39); BUN/Creatinine Ratio 20 (6-26); Bilirubin,Total 1.7 mg/dL (0.3-1.0); Blood Urea Nitrogen 23 mg/dL (8-23); Calcium 9.2 mg/dL (8.6-10.3); Carbon Dioxide 26 mEq/L (23-29); Chloride 103 mEq/L (98-107); Globulin 3.2 g/dL (2.4-3.5); Glucose 142 mg/dL (70-105); Magnesium 1.6 mg/dL (1.6-2.6); Osmolality,Calculated 286 (280-300); Potassium 3.8 mEq/L (3.5-5.1); Sodium 135 mEq/L (136-145); eGFR For African Americans > 60 (> 60); eGFR For Non-African Americans 60 (> 60)
[2022-02-19] MEDS: Insulin LISPRO 300 UNITS/3 ML VIAL SUBQ SCH ×3 (10:22→18:26)
[2022-02-19] MEDS: Cyanocobalamin (B-12) 1,000 MCG TABLET PO SCH (10:26)
[2022-02-19] MEDS: Lactulose Oral Soln 20 GM/30 ML UDC PO SCH ×3 (10:27→19:36)
[2022-02-19] MEDS: Aspirin Enteric Coated 81 MG Tablet PO SCH (10:27)
[2022-02-20] MEDS: Insulin LISPRO 300 UNITS/3 ML VIAL SUBQ SCH ×3 (09:13→16:37)
[2022-02-20] MEDS: Lactulose Oral Soln 20 GM/30 ML UDC PO SCH ×3 (09:13→21:21)
[2022-02-20] MEDS: Cyanocobalamin (B-12) 1,000 MCG TABLET PO SCH (09:14)
[2022-02-20] MEDS: Furosemide 20 MG TABLET PO SCH (09:14)
[2022-02-20] MEDS: Aspirin Enteric Coated 81 MG Tablet PO SCH (09:14)
[2022-02-21] MEDS: Aspirin Enteric Coated 81 MG Tablet PO SCH (09:02)
[2022-02-21] MEDS: Cyanocobalamin (B-12) 1,000 MCG TABLET PO SCH (09:02)
[2022-02-21] MEDS: Lactulose Oral Soln 20 GM/30 ML UDC PO SCH ×3 (09:02→21:00)
[2022-02-21] MEDS: Insulin LISPRO 300 UNITS/3 ML VIAL SUBQ SCH ×3 (09:03→17:10)
[2022-02-21 13:57] LABS: Basophils # 0.1 K/mcL (0.0-0.2); Basophils % 1.4 %; Eosinophils # 0.3 K/mcL (0.0-0.6); Hematocrit 28.3 % (37.5-50.1); Hemoglobin 9.4 g/dL (12.9-16.9); Immature Granulocytes % 0.8 % (0-4); Lymphocytes # 0.7 K/mcL (0.6-4.6); Lymphocytes % 14.7 %; Mean Corpuscular HGB Conc 33.2 g/dL (31.6-35.5); Mean Corpuscular Hemoglobin 29.9 pg (28.0-33.3); Mean Corpuscular Volume 90.1 fL (83.0-100.0); Mean Platelet Volume 9.5 fL (9.4-12.4); Monocytes # 0.5 K/mcL (0.0-1.3); Monocytes % 9.9 %; Neutrophils # 3.3 K/mcL (1.6-8.9); Platelet Count 182 K/mcL (140-400); Red Blood Count 3.14 M/mcL (4.19-5.50); Red Cell Distribution Width 18.3 % (11.5-14.5); Segmented Neutrophils % 67.2 %; White Blood Count 4.8 K/mcL (4.3-11.1)
[2022-02-21 14:04] LABS: INR 1.3; Prothrombin Time 14.4 Seconds (9.4-12.1)
[2022-02-21] MEDS: Melatonin 3 MG TABLET PO PRN (21:00)
[2022-02-22] MEDS: Insulin LISPRO 300 UNITS/3 ML VIAL SUBQ SCH ×2 (09:12→13:16)
[2022-02-22] MEDS: Lactulose Oral Soln 20 GM/30 ML UDC PO SCH (09:17)
[2022-02-22] MEDS: Aspirin Enteric Coated 81 MG Tablet PO SCH (09:18)
[2022-02-22] MEDS: Furosemide 20 MG TABLET PO SCH (09:18)
[2022-02-22] MEDS: Cyanocobalamin (B-12) 1,000 MCG TABLET PO SCH (09:18)
[2022-02-22] MEDS ORDERED: COVID-19 VAC,AD26(JANSSEN)/PF 0.5 ML VIAL IM ONE (10:15)
[2022-02-22 11:03] VITALS: BP 92/47; PULSE 71; TEMP 97.8; O2SAT 97
== END 2022-02-22 16:24 | disposition hospice, home (50) | DRG 442 ==
LOC: 2NENU → SUATTDRO 21:25 → 2NENU 21:44 → SUATTDRO 01-28 14:39
PROVIDERS: ADMIT Internal Medicine; ATTEND Internal Medicine